=== PATIENT | female | born 1980 | race Caucasian/White ===

== ENCOUNTER → 2017-09-22 09:43 | Outpatient (CLI) | payer MEDICAID, SELFPAY ==
[2017-09-22 10:57] LABS: Basophils % 0.5 % (0.1-2.0); Eosinophils # 0.4 K/mm3 (0.0-0.4); Eosinophils % 4.6 % (0.1-12.0); Hematocrit 41.5 % (37.0-47.0); Hemoglobin 13.7 g/dL (12.2-16.2); Lymphocytes # 3.4 K/mm3 (0.7-4.5); Lymphocytes % 37.5 K/mm3 (10-50); Mean Corpuscular Hemoglobin 29.5 pg (27.0-31.2); Mean Corpuscular Volume 89.4 fl (81-99); Mean Platelet Volume 6.9 fl (7.4-10.4); Monocytes # 0.5 K/mm3 (0.1-1.0); Neutrophils # 4.6 K/mm3 (1.8-7.8); Neutrophils % 51.5 % (37.0-80.0); Platelet Count 313 K/mm3 (142-424); Red Blood Count 4.64 M/mm3 (4.20-5.40)
[2017-09-22 11:38] LABS: Alanine Aminotransferase 20 U/L (12-78); Albumin Level 3.9 gm/dL (3.4-5.0); Albumin/Globulin Ratio 1.1 (1.1-1.8); Alkaline Phosphatase 57 U/L (46-116); Anion Gap 11.2 mEq/L (5-15); Aspartate Amino Transferase 12 U/L (15-37); Bilirubin,Total 0.5 mg/dL (0.2-1.0); Blood Urea Nitrogen 11 mg/dL (7-18); Calcium 9.2 mg/dL (8.5-10.1); Carbon Dioxide 26 mmol/L (21.0-32.0); Chloride 107 mmol/L (98-107); Creatinine,Serum 0.75 mg/dL (0.55-1.02); Estimated Glomerular Filt Rate 86 ml/min (>60); GFR (African American) 105 ML/MIN (>60); Globulin 3.7 gm/dl (1.3-3.2); Glucose 99 mg/dL (74-106); Potassium 4.2 mmoL/L (3.5-5.1); Sodium 140 mmol/L (136-145); Total Protein,Serum 7.6 gm/dL (6.4-8.2)
== END ==
PROVIDERS: Visit Provider Nurse Practitioner
DX: B19.20 Unspecified viral hepatitis C without hepatic coma (principal); Z79.899 Other long term (current) drug therapy
CPT/HCPCS: 36415; 80053; 85025; 87522

== ENCOUNTER → 2017-10-07 08:15 | Outpatient (CLI) | payer MEDICAID, SELFPAY ==
[2017-10-07 08:49] LABS: Urine Pregnancy, HCG Qual. Negative (Negative)
[2017-10-07 08:50] LABS: INR 0.95 (0.9-1.1); Prothrombin Time 9.8 seconds (9.4-11.8)
[2017-10-07 09:23] LABS: Basophils # 0.1 K/mm3 (0-0.2); Basophils % 0.7 % (0.1-2.0); Eosinophils # 0.5 K/mm3 (0.0-0.4); Eosinophils % 6.4 % (0.1-12.0); Hematocrit 39.2 % (37.0-47.0); Hemoglobin 13.1 g/dL (12.2-16.2); Lymphocytes # 2.8 K/mm3 (0.7-4.5); Mean Corpuscular HGB Conc 33.5 g/dL (31.8-35.4); Mean Corpuscular Hemoglobin 29.9 pg (27.0-31.2); Mean Corpuscular Volume 89.4 fl (81-99); Mean Platelet Volume 6.8 fl (7.4-10.4); Monocytes # 0.4 K/mm3 (0.1-1.0); Neutrophils # 4.3 K/mm3 (1.8-7.8); Platelet Count 324 K/mm3 (142-424); Red Blood Count 4.38 M/mm3 (4.20-5.40); Red Cell Distribution Width 12.9 % (11.5-17.5); White Blood Count 8.1 K/mm3 (4.8-10.8)
[2017-10-07 11:35] LABS: Alanine Aminotransferase 18 U/L (12-78); Albumin Level 3.8 gm/dL (3.4-5.0); Alkaline Phosphatase 65 U/L (46-116); Anion Gap 11.6 mEq/L (5-15); Aspartate Amino Transferase 12 U/L (15-37); Bilirubin,Total 0.4 mg/dL (0.2-1.0); Blood Urea Nitrogen 11 mg/dL (7-18); Calcium 9.3 mg/dL (8.5-10.1); Carbon Dioxide 28 mmol/L (21.0-32.0); Chloride 104 mmol/L (98-107); Estimated Glomerular Filt Rate 80 ml/min (>60); GFR (African American) 97 ML/MIN (>60); Globulin 3.7 gm/dl (1.3-3.2); Glucose 122 mg/dL (74-106); Potassium 4.6 mmoL/L (3.5-5.1); Sodium 139 mmol/L (136-145); Total Protein,Serum 7.5 gm/dL (6.4-8.2)
== END ==
PROVIDERS: Visit Provider Nurse Practitioner
DX: B19.20 Unspecified viral hepatitis C without hepatic coma (principal); Z79.899 Other long term (current) drug therapy
CPT/HCPCS: 36415; 80053; 81025; 85025; 85610; 87522

== ENCOUNTER → 2017-11-03 07:09 | Outpatient (CLI) | payer MEDICAID, SELFPAY ==
[2017-11-03 07:26] LABS: Basophils % 0.4 % (0.1-2.0); Eosinophils # 0.4 K/mm3 (0.0-0.4); Eosinophils % 4.5 % (0.1-12.0); Hematocrit 41.5 % (37.0-47.0); Hemoglobin 13.7 g/dL (12.2-16.2); Lymphocytes # 3.1 K/mm3 (0.7-4.5); Mean Corpuscular Hemoglobin 29.7 pg (27.0-31.2); Mean Corpuscular Volume 89.8 fl (81-99); Monocytes # 0.5 K/mm3 (0.1-1.0); Monocytes % 5.8 % (1.7-9.3); Neutrophils # 4.7 K/mm3 (1.8-7.8); Neutrophils % 54.4 % (37.0-80.0); Platelet Count 323 K/mm3 (142-424); Red Blood Count 4.63 M/mm3 (4.20-5.40); White Blood Count 8.7 K/mm3 (4.8-10.8)
[2017-11-03 07:30] LABS: INR 0.95 (0.9-1.1); Prothrombin Time 9.8 seconds (9.4-11.8)
[2017-11-03 08:52] LABS: Alanine Aminotransferase 17 U/L (12-78); Albumin Level 3.8 gm/dL (3.4-5.0); Alkaline Phosphatase 72 U/L (46-116); Anion Gap 11.9 mEq/L (5-15); Aspartate Amino Transferase 11 U/L (15-37); Bilirubin,Total 0.4 mg/dL (0.2-1.0); Blood Urea Nitrogen 9 mg/dL (7-18); Calcium 9.6 mg/dL (8.5-10.1); Carbon Dioxide 28 mmol/L (21.0-32.0); Chloride 107 mmol/L (98-107); Estimated Glomerular Filt Rate 93 ml/min (>60); GFR (African American) 113 ML/MIN (>60); Globulin 3.7 gm/dl (1.3-3.2); Glucose 117 mg/dL (74-106); Potassium 4.9 mmoL/L (3.5-5.1); Sodium 142 mmol/L (136-145); Total Protein,Serum 7.5 gm/dL (6.4-8.2)
== END ==
PROVIDERS: PCP Family Medicine; Visit Provider Nurse Practitioner
DX: B19.20 Unspecified viral hepatitis C without hepatic coma (principal); Z79.899 Other long term (current) drug therapy
CPT/HCPCS: 36415; 80053; 85025; 85610; 87522

== ENCOUNTER → 2017-11-30 09:30 | Outpatient (CLI) | payer MEDICAID, SELFPAY ==
[2017-11-30 10:10] LABS: Urine Pregnancy, HCG Qual. Negative (Negative)
[2017-11-30 10:36] LABS: Basophils % 0.4 % (0.1-2.0); Eosinophils # 0.4 K/mm3 (0.0-0.4); Eosinophils % 4.9 % (0.1-12.0); Hematocrit 41.1 % (37.0-47.0); Hemoglobin 13.6 g/dL (12.2-16.2); Lymphocytes # 2.8 K/mm3 (0.7-4.5); Lymphocytes % 33.1 K/mm3 (10-50); Mean Corpuscular HGB Conc 33.1 g/dL (31.8-35.4); Mean Corpuscular Hemoglobin 29.5 pg (27.0-31.2); Mean Corpuscular Volume 89.2 fl (81-99); Monocytes # 0.5 K/mm3 (0.1-1.0); Monocytes % 5.6 % (1.7-9.3); Neutrophils # 4.8 K/mm3 (1.8-7.8); Platelet Count 313 K/mm3 (142-424); Red Blood Count 4.61 M/mm3 (4.20-5.40); Red Cell Distribution Width 12.8 % (11.5-17.5); White Blood Count 8.5 K/mm3 (4.8-10.8)
[2017-11-30 12:03] LABS: Alanine Aminotransferase 19 U/L (12-78); Albumin/Globulin Ratio 1.1 (1.1-1.8); Alkaline Phosphatase 56 U/L (46-116); Anion Gap 14.1 mEq/L (5-15); Aspartate Amino Transferase 16 U/L (15-37); Bilirubin,Total 0.4 mg/dL (0.2-1.0); Blood Urea Nitrogen 9 mg/dL (7-18); Calcium 9.3 mg/dL (8.5-10.1); Carbon Dioxide 25 mmol/L (21.0-32.0); Chloride 103 mmol/L (98-107); Creatinine,Serum 0.67 mg/dL (0.55-1.02); Estimated Glomerular Filt Rate 98 ml/min (>60); GFR (African American) 119 ML/MIN (>60); Globulin 3.7 gm/dl (1.3-3.2); Glucose 94 mg/dL (74-106); Potassium 4.1 mmoL/L (3.5-5.1); Sodium 138 mmol/L (136-145); Total Protein,Serum 7.7 gm/dL (6.4-8.2)
== END ==
PROVIDERS: PCP Family Medicine; Visit Provider Nurse Practitioner
DX: B19.20 Unspecified viral hepatitis C without hepatic coma (principal); Z79.899 Other long term (current) drug therapy
CPT/HCPCS: 36415; 80053; 81025; 85025; 87522

== ENCOUNTER → 2017-12-23 09:16 | Outpatient (CLI) | payer MEDICAID, SELFPAY ==
--- NOTE | 2017-12-23 09:19 | US_ITS ---
US transvaginal HISTORY: ITS.REASON: pelvic pain ORDERING PHYSICIAN: Gerardo Rosales MD PATIENT AGE: 37 years Comparison: None FINDINGS: Nabothian cysts are present measuring up to 7 mm. The uterus is 7.6 x 3.4 x 5.2 cm. Endometrium has an unremarkable appearance measuring 6 mm in thickness. The uterus is anteverted. The right ovary is 2.4 x 1.1 cm and contains a 7 mm follicle The left ovary is 2.8 x 1.9 cm and contains several small follicular cysts the largest of which is 1.3 cm. Bilateral ovarian blood flow. No cul-de-sac fluid. IMPRESSION: Essentially negative pelvic ultrasound. There are small left ovarian follicular cysts
== END ==
PROVIDERS: PCP Family Medicine; Visit Provider Obstetrics & Gynecology
DX: R10.2 Pelvic and perineal pain (principal)
CPT/HCPCS: 76830

== ENCOUNTER → 2018-01-26 09:54 | Outpatient (CLI) | payer MEDICAID, SELFPAY ==
[2018-01-26 10:29] LABS: INR 0.98 (0.9-1.1); Prothrombin Time 10.1 seconds (9.4-11.8)
[2018-01-26 10:33] LABS: Basophils % 0.5 % (0.1-2.0); Eosinophils # 0.5 K/mm3 (0.0-0.4); Eosinophils % 6.1 % (0.1-12.0); Hematocrit 39.7 % (37.0-47.0); Hemoglobin 12.9 g/dL (12.2-16.2); Lymphocytes # 2.8 K/mm3 (0.7-4.5); Lymphocytes % 37.7 % (10-50); Mean Corpuscular HGB Conc 32.6 g/dL (31.8-35.4); Mean Corpuscular Hemoglobin 29.4 pg (27.0-31.2); Mean Corpuscular Volume 90.3 fl (81-99); Mean Platelet Volume 7.1 fl (7.4-10.4); Monocytes # 0.4 K/mm3 (0.1-1.0); Monocytes % 4.8 % (1.7-9.3); Neutrophils # 3.8 K/mm3 (1.8-7.8); Neutrophils % 50.8 % (37.0-80.0); Platelet Count 318 K/mm3 (142-424); Red Cell Distribution Width 13.1 % (11.5-17.5); White Blood Count 7.4 K/mm3 (4.8-10.8)
[2018-01-26 11:00] LABS: Alanine Aminotransferase 24 U/L (12-78); Albumin Level 3.7 gm/dL (3.4-5.0); Albumin/Globulin Ratio 1.1 (1.1-1.8); Alkaline Phosphatase 53 U/L (46-116); Anion Gap 11.8 mEq/L (5-15); Aspartate Amino Transferase 18 U/L (15-37); Bilirubin,Total 0.3 mg/dL (0.2-1.0); Blood Urea Nitrogen 7 mg/dL (7-18); Calcium 9.5 mg/dL (8.5-10.1); Carbon Dioxide 28 mmol/L (21.0-32.0); Chloride 104 mmol/L (98-107); Creatinine,Serum 0.75 mg/dL (0.55-1.02); Estimated Glomerular Filt Rate 86 ml/min (>60); GFR (African American) 104 ML/MIN (>60); Globulin 3.5 gm/dl (1.3-3.2); Glucose 94 mg/dL (74-106); Potassium 3.8 mmoL/L (3.5-5.1); Sodium 140 mmol/L (136-145); Total Protein,Serum 7.2 gm/dL (6.4-8.2)
== END ==
PROVIDERS: PCP Family Medicine; Visit Provider Nurse Practitioner
DX: B19.20 Unspecified viral hepatitis C without hepatic coma (principal); Z79.899 Other long term (current) drug therapy
CPT/HCPCS: 36415; 80053; 85025; 85610; 87522

== ENCOUNTER → 2019-03-04 08:37 | Outpatient (CLI) | payer OTHER, SELFPAY ==
[2019-03-04 10:54] LABS: Blood Urea Nitrogen 12 mg/dL (7-18); Chloride 102 mmol/L (98-107); Sodium 137 mmol/L (136-145)
[2019-03-04 11:14] LABS: Alanine Aminotransferase 19 U/L (12-78); Albumin Level 3.9 gm/dL (3.4-5.0); Albumin/Globulin Ratio 1.3 (1.1-1.8); Alkaline Phosphatase 46 U/L (46-116); Anion Gap 11.6 mEq/L (5-15); Aspartate Amino Transferase 11 U/L (15-37); Bilirubin,Total 0.6 mg/dL (0.2-1.0); Calcium 9.3 mg/dL (8.5-10.1); Carbon Dioxide 28 mmol/L (21.0-32.0); Chol/HDL Ratio 4.4 (1-3.5); Cholesterol 208 mg/dL (140-200); Creatinine,Serum 0.87 mg/dL (0.55-1.02); Estimated Glomerular Filt Rate 72 ml/min (>60); GFR (African American) 87 ML/MIN (>60); Globulin 3.1 gm/dl (1.3-3.2); Glucose 101 mg/dL (74-106); HDL Cholesterol 47 mg/dL (29-89); LDL Cholesterol 138 mg/dL (0-130); Potassium 4.6 mmoL/L (3.5-5.1); Thyroid Stimulating Hormone 1.08 uIU/ml (0.358-3.740); Triglycerides 116 mg/dL (30-200); VLDL Cholesterol 23 mg/dL (0-40)
== END ==
PROVIDERS: Visit Provider Physician Assistant
DX: Z13.29 Encounter for screening for other suspected endocrine disorder (principal); Z13.220 Encounter for screening for lipoid disorders
CPT/HCPCS: 36415; 80053; 80061; 84443

== ENCOUNTER → 2019-04-06 09:08 | Outpatient (CLI) | payer OTHER, SELFPAY ==
[2019-04-06 09:19] LABS: Adenovirus F 40/41, stool Not Detected (NotDetected); Astrovirus Not Detected (NotDetected); Campylobacter Not Detected (NotDetected); Clostridium Difficile A/B, PCR Not Detected (NotDetected); Cryptosporidium Not Detected (NotDetected); Cyclospora Cayetanesis Not Detected (NotDetected); Entamoeba histolytica Not Detected (NotDetected); Enteroaggregative E coli Not Detected (NotDetected); Enteropathogenic E coli Not Detected (NotDetected); Enterotoxigenic E coli Not Detected (NotDetected); Giardia lamblia Not Detected (NotDetected); Norovirus Not Detected (NotDetected); Plesimonas Shigalloides, PCR Not Detected (NotDetected); Rotavirus A Not Detected (NotDetected); Salmonella, PCR Not Detected (NotDetected); Sapovirus Not Detected (NotDetected); Shiga-like toxin E coli Not Detected (NotDetected); Shigella Enterovasive E coli Not Detected (NotDetected); Vibrio Cholerae Not Detected (NotDetected); Vibrio, PCR Not Detected (NotDetected); Yersinia Entercolitica, PCR Not Detected (NotDetected)
== END ==
PROVIDERS: Visit Provider Physician Assistant
DX: R19.7 Diarrhea, unspecified (principal)
CPT/HCPCS: 87507

== ENCOUNTER → 2020-03-23 09:17 | Outpatient (CLI) | payer OTHER, SELFPAY ==
[2020-03-23 10:27] LABS: Alanine Aminotransferase 15 U/L (12-78); Albumin Level 4.8 g/dl (3.5-5.0); Albumin/Globulin Ratio 1.4 (1.1-1.8); Alkaline Phosphatase 48 U/L (38-126); Anion Gap 12.3 mEq/L (5-15); Aspartate Amino Transferase 23 U/L (14-36); Bilirubin,Total 0.6 mg/dl (0.2-1.3); Blood Urea Nitrogen 10 mg/dl (7-17); Calcium 10.4 mg/dl (8.4-10.2); Carbon Dioxide 25 mmol/L (22.0-30.0); Chloride 105 mmol/L (98-107); Chol/HDL Ratio 4.6 (1-3.5); Cholesterol 236 mg/dl (140-200); Estimated Glomerular Filt Rate 79 ml/min (>60); GFR (African American) 96 ML/MIN (>60); Globulin 3.4 g/dL (1.3-3.2); Glucose 123 mg/dl (74-100); HDL Cholesterol 51 mg/dl (40-60); Potassium 4.3 mmoL/L (3.5-5.1); Sodium 138 mmol/L (136-145); Total Protein,Serum 8.2 g/dl (6.3-8.2); Triglycerides 140 mg/dl (30-150); VLDL Cholesterol 28 mg/dL (0-40)
[2020-03-23 10:38] LABS: Direct LDL Cholesterol 144.54 mg/dL (100-129)
== END ==
PROVIDERS: Visit Provider Physician Assistant
DX: Z13.220 Encounter for screening for lipoid disorders (principal); Z79.899 Other long term (current) drug therapy; G47.00 Insomnia, unspecified
CPT/HCPCS: 36415; 80053; 80061

== ENCOUNTER 2020-05-08 10:36 | Emergency (ER) | payer OTHER, SELFPAY ==
[2020-05-08 10:50] VITALS: BP 122/71; PULSE 75; RESP 16; TEMP 36.6; O2SAT 100; BMI 25.9
--- NOTE | 2020-05-08 10:59 | HMH.EDUTC ---
[facility] [place]ression: Encounter for laboratory testing for COVID-19 virus Disposition: Home, Self-Care Condition on Discharge: Good Instructions: DI for COVID-19 (Suspected or Confirmed ), Preventing the Spread of Coronavirus Discharge Instructions Additional Instructions: You were tested for today for COVID19 your test result should be back in the next 24-48 hours, you may call to the [facility] to see if your test results are back in the next 48 hours [phone] [facility] hours are 9am-9pm You was given a handout with instructions for Self Quarantine and Self isolation for while you wait on test results and what to do if they are positive If you are positive the Health Dept will be contacting you also Referrals: Wilbur Romero MD [Primary Care Provider] - As needed Forms: Work/School Release Time of Disposition: 11:02 Medical Decision Making - Bong Inquiry Pt receiving controlled substance: No Bong was queried for this patient: No Vital Signs: 05/08/20 10:50 Temperature 97.8 F Temperature Source Oral Pulse Rate [Right] 75 Respiratory Rate 16 Blood Pressure [Right Arm] 122/71 Blood Pressure Mean [Right Arm] 88 Blood Pressure Source [Right Arm] Automatic Cuff Blood Pressure Position [Right Arm] Sitting 02 Sat by Pulse Oximetry 100 Oxygen Delivery Method Room Air Orders (Tests/Meds): ORDERS Category Date Time Status Covid-19 Nasal PCR ([facility]) Routine Lab 05/08/20 10:50 [place] [facility] [place] - General Stated complaint: covid exposure,diarrhea Time Seen by Provider: 05/08/20 10:59 Mode of Arrival: Ambulatory Source of Information: Patient Limitations: No Limitations Description of Symptoms (Recalled from Triage Doc. by RN): pt was exposed to covid last wednesday. pt is asymptomatic. HEENT Symptoms (Recalled from RN notes): No Resp Symptoms (Recalled from RN notes): No Skin Symptoms (Recalled from RN notes): No MS Symptoms (Recalled from RN notes): No Functional Status (Recalled from RN notes): na - History of Present Illness Provider Complaint: Patient states that she was exposed to COVID on Wednesday States that she had a little bit of diarrhea on Wednesday but only lasted for a few hours then stopped States that she has been vaccinated but her boss told her that she had to come and get tested - Related Data Home Medications Medication Instructions Recorded Confirmed duloxetine 30 mg capsule,delayed PO 30 Days #30 04/02/17 12/25/19 release quetiapine 100 mg tablet 100 mg PO QHS 30 Days #30 tab 04/02/17 12/25/19 valacyclovir 1 gram tablet 1,000 mg PO tab 12/25/19 12/25/19 Allergies Allergy/AdvReac Type Severity Reaction Status Date / Time No Known Allergies Allergy Verified 05/08/20 10:54 - Worker's Comp Is this a Worker's Comp case?: No [facility] History - Hepatitis A Screen Drug use history?: No High risk sexual behaviors?: No History of sexually transmitted infection?: No Currently employed?: No Childcare worker?: No Do you have indoor plumbing?: Yes Do you have electricity?: Yes Attestation statement:: This patient has been screened for Hepatitis A risk factors. I have reviewed the patient's past medical history: Yes Other Surgeries: Yes: Other Amputation: No Fractures: No Comment: 1998- WISDOM TEETH. 2001- CRYOSURGERY. 2010- SINUS SURGERY - Social History Smoking Status: Current every day smoker # Packs/Day (cigarettes): 1 #Yrs smoked (if former smoker): 20 Alcohol Intake: never Alcohol Intake Frequency:: other Substance Use Type: denies use Occupational Status: employed Housing: house Family Hx:: Cancer, Heart Attack Comment: 2012- ,FEMALE,6 LB. 8 OZ. ROS Obtained: Yes All systems reviewed & no additional complaints, Yes Systems reviewed as appropriate & no additional complaints - Constitutional Constitutional: Reports system reviewed and no additional complaints, except as docu, Denies body ache, Denies chills, Denies fatigue, Denies fever(s)
[2020-05-08 11:04] VITALS: BP 119/84; PULSE 79; RESP 14; TEMP 36.6
== END 2020-05-08 11:11 | disposition home or self-care (01) ==
PROVIDERS: Emergency Provider Nurse Practitioner; PCP Family Medicine
DX: Z20.822 Contact with and (suspected) exposure to COVID-19 (principal); F17.210 Nicotine dependence, cigarettes, uncomplicated
CPT/HCPCS: 99202; G0463; U0003

== ENCOUNTER 2020-05-27 18:51 | Emergency (ER) | payer OTHER, SELFPAY ==
[2020-05-27 18:55] VITALS: BP 114/71; PULSE 88; RESP 20; TEMP 36.4; O2SAT 99; BMI 25.9
--- NOTE | 2020-05-27 19:11 | HMH.EDUTC ---
[facility] [place] Clinical Impression: Encounter for laboratory testing for COVID-19 virus Disposition: Home, Self-Care Condition on Discharge: Good Instructions: DI for COVID-19 (Suspected or Confirmed ), Preventing the Spread of Coronavirus Discharge Instructions Additional Instructions: *Monitor Temp, Over the counter Motrin or Tylenol as directed/as needed Tylenol every 4 hours and Motrin every 6 hours (as long as your family doctor has told you that you can take it) for fever or pain. and straight to ER if unable to lower temp less than 101.0 after medication given Follow up IMMEDIATELY for new or worsening symptoms or no Noticeable improvement over the next 48-72 hours. 911 for difficulty breathing or swallowing You were tested for today for COVID19 your test result should be back in the next 24-48 hours, you may call to the [facility] to see if your test results are back in the next 48 hours [phone] [facility] hours are 9am-9pm You was given a handout with instructions for Self Quarantine and Self isolation for while you wait on test results and what to do if they are positive If you are positive the Health Dept will be contacting you also Referrals: Wilbur Romero MD [Primary Care Provider] - As needed Forms: Work/School Release Time of Disposition: 19:16 Medical Decision Making - Bong Inquiry Pt receiving controlled substance: No Bong was queried for this patient: No Vital Signs: 05/27/20 18:55 Temperature 97.5 F L Temperature Source Temporal Artery Scan Pulse Rate [Right Brachial] 88 Respiratory Rate 20 Blood Pressure [Right Arm] 114/71 Blood Pressure Mean [Right Arm] 85 Blood Pressure Source [Right Arm] Automatic Cuff Blood Pressure Position [Right Arm] Sitting 02 Sat by Pulse Oximetry 99 Oxygen Delivery Method Room Air Orders (Tests/Meds): ORDERS Category Date Time Status Covid-19 Nasal PCR ([facility]) Routine Lab 05/27/20 19:01 Ordered [facility] [place] H[place] - General Stated complaint: covid test Time Seen by Provider: 05/27/20 19:11 Mode of Arrival: Ambulatory Source of Information: Patient Limitations: No Limitations Description of Symptoms (Recalled from Triage Doc. by RN): COVID TEST D/T EXPOSURE. DENIES SYMPTOMS HEENT Symptoms (Recalled from RN notes): No Resp Symptoms (Recalled from RN notes): No Skin Symptoms (Recalled from RN notes): No MS Symptoms (Recalled from RN notes): No Functional Status (Recalled from RN notes): WNL - History of Present Illness Provider Complaint: Patient state that she was around a coworker over the weekend States that she is not having any symptoms States that work wanted her to get tested due to close exposure but denies having any symptoms - Related Data Home Medications Medication Instructions Recorded Confirmed duloxetine 30 mg capsule,delayed PO 30 Days #30 04/02/17 12/25/19 release quetiapine 100 mg tablet 100 mg PO QHS 30 Days #30 tab 04/02/17 12/25/19 valacyclovir 1 gram tablet 1,000 mg PO tab 12/25/19 12/25/19 Allergies Allergy/AdvReac Type Severity Reaction Status Date / Time No Known Allergies Allergy Verified 05/08/20 10:54 - Worker's Comp Is this a Worker's Comp case?: No [facility] History - Hepatitis A Screen Drug use history?: No High risk sexual behaviors?: No History of sexually transmitted infection?: No Currently employed?: No Childcare worker?: No Do you have indoor plumbing?: Yes Do you have electricity?: Yes Attestation statement:: This patient has been screened for Hepatitis A risk factors. I have reviewed the patient's past medical history: Yes Other Surgeries: Yes: Other Amputation: No Fractures: No Comment: 1998- WISDOM TEETH. 2001- CRYOSURGERY. 2010- SINUS SURGERY - Social History Smoking Status: Current every day smoker # Packs/Day (cigarettes): 1 #Yrs smoked (if former smoker): 20 Alcohol Intake: never Alcohol Intake Frequency:: other Substance Use Type: denies use Occupational Status: employe
[2020-05-27 19:25] VITALS: BP 114/71; PULSE 88; RESP 20; TEMP 36.4; O2SAT 99
== END 2020-05-27 19:29 | disposition home or self-care (01) ==
PROVIDERS: Emergency Provider Nurse Practitioner; PCP Family Medicine
DX: Z20.822 Contact with and (suspected) exposure to COVID-19 (principal); F17.210 Nicotine dependence, cigarettes, uncomplicated
CPT/HCPCS: 99202; G0463; U0003

== ENCOUNTER → 2020-07-27 07:51 | Outpatient (CLI) | payer OTHER, SELFPAY ==
[2020-07-27 09:09] LABS: Cholesterol 208 mg/dl (140-200); Triglycerides 113 mg/dl (30-150); VLDL Cholesterol 23 mg/dL (0-40)
[2020-07-27 09:10] LABS: Chol/HDL Ratio 4.4 (1-3.5); HDL Cholesterol 47 mg/dl (40-60)
[2020-07-27 09:20] LABS: Direct LDL Cholesterol 128.02 mg/dL (100-129)
[2020-07-29 13:09] LABS: H. pylori Breath Test Negative (Negative)
== END ==
PROVIDERS: Visit Provider Family Medicine
DX: R14.2 Eructation (principal); E78.2 Mixed hyperlipidemia
CPT/HCPCS: 80061; 83013

== ENCOUNTER → 2021-02-11 11:11 | Outpatient (CLI) | payer OTHER, SELFPAY ==
[2021-02-11 12:16] LABS: Adenovirus,PCR Not Detected (NotDetected); Bordetella Pertussis Not Detected (NotDetected); Chlamydophila Pneumoniae, PCR Not Detected (NotDetected); Coronavirus 19, PCR Not Detected (NotDetected); Coronavirus 229E Not Detected (NotDetected); Coronavirus NL63 Not Detected (NotDetected); Coronavirus OC43 Not Detected (NotDetected); Coronovirus HKU1,PCR Not Detected (NotDetected); Human Metapneumovirus Not Detected (NotDetected); Influenza A, PCR Not Detected (NotDetected); Influenza AH1, 2009 Not Detected (NotDetected); Influenza AH1, PCR Not Detected (NotDetected); Influenza AH3,PCR Not Detected (NotDetected); Influenza B, PCR Not Detected (NotDetected); Mycoplasma Pneumoniae, PCR Not Detected (NotDetected); Parainfluenza 1, PCR Not Detected (NotDetected); Parainfluenza 2, PCR Not Detected (NotDetected); Parainfluenza 3, PCR Not Detected (NotDetected); Parainfluenza 4, PCR Not Detected (NotDetected); Respiratory Syncytial Virus Not Detected (NotDetected); Rhinovirus/Enterovirus Not Detected (NotDetected)
[2021-02-11 12:25] LABS: Basophils # 0.1 K/mm3 (0-0.2); Basophils % 0.9 % (0.1-2.0); Eosinophils # 0.2 K/mm3 (0.0-0.4); Eosinophils % 2.1 % (0.1-12.0); Hematocrit 40.1 % (37.0-47.0); Hemoglobin 13.1 g/dL (12.2-16.2); Lymphocytes # 0.9 K/mm3 (0.7-4.5); Mean Corpuscular HGB Conc 32.7 g/dL (31.8-35.4); Mean Corpuscular Hemoglobin 30.6 pg (27.0-31.2); Mean Corpuscular Volume 93.4 fl (81-99); Mean Platelet Volume 7.8 fl (7.4-10.4); Monocytes # 0.6 K/mm3 (0.1-1.0); Monocytes % 6.2 % (1.7-9.3); Neutrophils # 7.5 K/mm3 (1.8-7.8); Neutrophils % 80.9 % (37.0-80.0); Platelet Count 268 K/mm3 (142-424); Red Cell Distribution Width 13.1 % (11.5-17.5); White Blood Count 9.2 K/mm3 (4.8-10.8)
== END ==
PROVIDERS: PCP Family Medicine; Visit Provider Family Medicine
DX: Z20.822 Contact with and (suspected) exposure to COVID-19 (principal)
CPT/HCPCS: 36415; 85025; 87581; 87632; 87798; C9803; U0003; U0005

== ENCOUNTER 2021-02-15 10:32 | Emergency (ER) | payer OTHER, SELFPAY ==
--- NOTE | 2021-02-15 11:14 | HMH.EDUTC ---
[facility] [place]: Exposure to COVID-19 virus Disposition: Home, Self-Care Condition on Discharge: Good Instructions: Preventing the Spread of Coronavirus Discharge Instructions, DI for COVID-19 (Suspected or Confirmed ) Additional Instructions: Drink plenty of fluids. Take tylenol or ibuprofen for pain or fever. Follow up with your regular doctor. GO TO THE ER FOR ANY WORSENING SYMPTOMS Quarantine until you know the results of your covid-19 test. If it is positive, the health department should call you and give you further instructions about your length of Quarantine and other things. Notify your school or workplace of your results and follow their instructions regarding return to work/school. Referrals: Wilbur Romero MD [Primary Care Provider] - Time of Disposition: 11:45 Medical Decision Making - Medical Records Medical records reviewed: No: I reviewed the patient's medical records. - Bong Inquiry Pt receiving controlled substance: No Vital Signs: 02/15/21 11:16 Temperature 98.8 F Temperature Source Oral Pulse Rate [Right] 75 Respiratory Rate 18 Blood Pressure [Right Arm] 110/67 Blood Pressure Mean [Right Arm] 81 02 Sat by Pulse Oximetry 98 Orders (Tests/Meds): ORDERS Category Date Time Status Covid-19 Nasal PCR ([facility]) Routine Lab 02/15/21 11:35 [place] [facility] [place] - General Stated complaint: covid symptoms, exposure Time Seen by Provider: 02/15/21 11:14 - History of Present Illness Provider Complaint: She has been feeling bad for the past 5 days or so. She saw her pcp and was started on cefdinir for a sinus infection. Then, yesterday, she found out someone in her office has covid-19. Her work wants her to be tested for covid-19. - Related Data Home Medications Medication Instructions Recorded Confirmed duloxetine 30 mg capsule,delayed PO 30 Days #30 04/02/17 12/25/19 release quetiapine 100 mg tablet 100 mg PO QHS 30 Days #30 tab 04/02/17 12/25/19 valacyclovir 1 gram tablet 1,000 mg PO tab 12/25/19 12/25/19 Allergies Allergy/AdvReac Type Severity Reaction Status Date / Time No Known Allergies Allergy Verified 05/08/20 10:54 [facility] History - Hepatitis A Screen Attestation statement:: This patient has been screened for Hepatitis A risk factors. I have reviewed the patient's past medical history: Yes Other Surgeries: Yes: Other Amputation: No Fractures: No Comment: 1998- WISDOM TEETH. 2001- CRYOSURGERY. 2010- SINUS SURGERY - Social History Smoking Status: Current every day smoker # Packs/Day (cigarettes): 1 #Yrs smoked (if former smoker): 20 Alcohol Intake: never Alcohol Intake Frequency:: other Substance Use Type: denies use Occupational Status: employed Housing: house Family Hx:: Cancer, Heart Attack Comment: 2013- ,FEMALE,6 LB. 8 OZ. ROS Obtained: Yes All systems reviewed & no additional complaints - Constitutional Constitutional: Denies chills, Denies fever(s) - Eyes Eyes: Denies eye discharge - ENT Ears, Nose, Mouth, and Throat: Denies dizziness, Denies otalgia, Denies sore throat - Cardiovascular Cardiovascular: Denies chest pain - Respiratory Respiratory: Denies chest congestion, Reports cough, Denies dyspnea, Denies stridor, Denies wheezing Physical Exam - General General appearance: alert, in no apparent distress - Head Head exam: atraumatic, normocephalic, normal inspection - Eye Eye exam: Present: normal appearance, PERRL, EOMI - ENT ENT exam: Present: normal exam, normal oropharynx, mucous membranes moist, TM's normal bilaterally, normal external ear exam - Neck Neck exam: Present: normal inspection, full ROM, trachea midline. Absent: meningismus, lymphadenopathy - Chest Chest inspection: Present: normal inspection, symmetric chest wall rise. Absent: tenderness - Respiratory Respiratory exam: Present: normal lung sounds bilaterally. Absent: respiratory distres
[2021-02-15 11:16] VITALS: BP 110/67; PULSE 75; RESP 18; TEMP 37.1; O2SAT 98; BMI 26.6
[2021-02-15 11:53] VITALS: BP 110/67; PULSE 75; RESP 18; TEMP 37.1
== END 2021-02-15 11:54 | disposition home or self-care (01) ==
PROVIDERS: Emergency Provider Nurse Practitioner Family; PCP Family Medicine
DX: Z20.822 Contact with and (suspected) exposure to COVID-19 (principal); R05.1 Acute cough; F17.210 Nicotine dependence, cigarettes, uncomplicated
CPT/HCPCS: 99202; C9803; G0463; U0003; U0005

== ENCOUNTER → 2022-04-03 16:19 | Outpatient (CLI) | payer OTHER, SELFPAY ==
--- NOTE | 2022-04-03 | MM_ITS ---
PROCEDURE INFORMATION: Exam: MG Bilateral Screening 3D Mammography Exam date and time: 04/03/2022 4:12 PM Age: 41 years old Clinical indication: Baseline. No family history of breast cancer. TECHNIQUE: Imaging protocol: Bilateral Screening tomosynthesis and 2D mammography including computer-aided detection (CAD) when performed. COMPARISON: No relevant prior studies available. FINDINGS: MAMMOGRAPHY: Breast composition: The breasts are heterogeneously dense, which may obscure small masses. Mass: None. Architectural distortion: None. Calcifications: No suspicious calcifications. Asymmetric density: None. Skin thickening: None. Axillary adenopathy: None. IMPRESSION: No mammographic evidence of malignancy. Annual screening is recommended unless otherwise clinically indicated. ASSESSMENT: BI-RADS Category 1: Negative
== END ==
PROVIDERS: PCP Family Medicine; Visit Provider Family Medicine
DX: Z12.31 Encounter for screening mammogram for malignant neoplasm of breast (principal)
CPT/HCPCS: 77063; 77067

== ENCOUNTER → 2022-06-22 17:44 | Outpatient (CLI) | payer OTHER, SELFPAY ==
--- NOTE | 2022-06-22 17:59 | XR_ITS ---
PROCEDURE INFORMATION: Exam: XR Cervical Spine Exam date and time: 06/22/2022 5:52 PM Age: 41 years old Clinical indication: Patient HX: skilled nursing neck pain, no injury. TECHNIQUE: Imaging protocol: Radiologic exam of the cervical spine. Views: 2 or 3 views. COMPARISON: No relevant prior studies available. FINDINGS: Bones/joints: Mild uncovertebral spurring present at the C4-C5 and C5-C6 disc levels. No other significant degenerative/arthritic changes. No fracture or subluxation. Soft tissues: Unremarkable. IMPRESSION: Minimal degenerative changes as described. No acute abnormality.
== END ==
PROVIDERS: PCP Physician Assistant; Visit Provider Physician Assistant
DX: M54.2 Cervicalgia (principal)
CPT/HCPCS: 72040

== ENCOUNTER → 2022-08-15 11:06 | Outpatient (CLI) | payer OTHER, SELFPAY ==
[2022-08-15 11:27] LABS: Basophils # 0.1 K/mm3 (0-0.2); Basophils % 0.6 % (0.1-2.0); Eosinophils # 0.5 K/mm3 (0.0-0.4); Eosinophils % 5.3 % (0.1-12.0); Hematocrit 40.4 % (37.0-47.0); Hemoglobin 13.1 g/dL (12.2-16.2); Lymphocytes # 3.6 K/mm3 (0.7-4.5); Lymphocytes % 36.4 % (10-50); Mean Corpuscular HGB Conc 32.4 g/dL (31.8-35.4); Mean Corpuscular Hemoglobin 28.9 pg (27.0-31.2); Mean Platelet Volume 7.4 fl (7.4-10.4); Monocytes # 0.4 K/mm3 (0.1-1.0); Monocytes % 4.4 % (1.7-9.3); Neutrophils # 5.3 K/mm3 (1.8-7.8); Neutrophils % 53.3 % (37.0-80.0); Platelet Count 303 K/mm3 (142-424); Red Blood Count 4.54 M/mm3 (4.20-5.40); Red Cell Distribution Width 13.1 % (11.5-17.5); White Blood Count 9.9 K/mm3 (4.8-10.8)
[2022-08-15 11:57] LABS: Alanine Aminotransferase 26 U/L (12-78); Albumin Level 4.7 g/dl (3.5-5.0); Albumin/Globulin Ratio 1.5 (1.1-1.8); Alkaline Phosphatase 49 U/L (38-126); Anion Gap 14.2 mEq/L (5-15); Aspartate Amino Transferase 28 U/L (14-36); Bilirubin,Total 0.6 mg/dl (0.2-1.3); Blood Urea Nitrogen 11 mg/dl (7-17); Calcium 9.5 mg/dl (8.4-10.2); Carbon Dioxide 23 mmol/L (22.0-30.0); Chloride 105 mmol/L (98-107); Chol/HDL Ratio 5.2 (1-3.5); Cholesterol 258 mg/dl (140-200); Estimated Glomerular Filt Rate 78 ml/min (>60); GFR (African American) 95 ML/MIN (>60); Globulin 3.2 g/dL (1.3-3.2); Glucose 91 mg/dl (74-100); HDL Cholesterol 50 mg/dl (40-60); Potassium 4.2 mmoL/L (3.5-5.1); Sodium 138 mmol/L (136-145); Total Protein,Serum 7.9 g/dl (6.3-8.2); Triglycerides 124 mg/dl (30-150); VLDL Cholesterol 25 mg/dL (0-40)
[2022-08-15 12:08] LABS: Direct LDL Cholesterol 155.88 mg/dL (100-129)
[2022-08-15 12:14] LABS: 25-OH Vitamin D, Total 78.5 ng/mL (30-100)
[2022-08-15 12:28] LABS: Thyroid Stimulating Hormone 1.55 uIU/mL (0.465-4.68)
[2022-08-15 12:47] LABS: Vitamin B12 927 pg/mL (239-931)
== END ==
PROVIDERS: PCP Family Medicine; Visit Provider Physician Assistant
DX: R42 Dizziness and giddiness (principal); E78.2 Mixed hyperlipidemia; E53.8 Deficiency of other specified B group vitamins; E55.9 Vitamin D deficiency, unspecified; H93.13 Tinnitus, bilateral
CPT/HCPCS: 36415; 80053; 80061; 82306; 82607; 84443; 85025

== ENCOUNTER → 2022-10-06 15:34 | Outpatient (POV) | payer OTHER, SELFPAY | PROVIDERS: Visit Provider Specialist/Technologist | DX: Z00.00 Encounter for general adult medical examination without abnormal findings (principal) ==

== ENCOUNTER 2023-06-15 09:49 | Outpatient (CLI) | payer OTHER, SELFPAY ==
--- NOTE | 2023-06-15 09:49 | MM_ITS ---
PROCEDURE INFORMATION: Exam: MG Bilateral Screening 3D Mammography Exam date and time: 06/15/2023 9:41 AM Age: 42 years old Clinical indication: Screening. No family history of breast cancer. TECHNIQUE: Imaging protocol: Bilateral Screening tomosynthesis and 2D mammography including computer-aided detection (CAD) when performed. COMPARISON: MG MM DIG SCREENING MAMM BI W/CAD 04/03/2022 4:12 PM FINDINGS: MAMMOGRAPHY: Breast composition: The breasts are heterogeneously dense, which may obscure small masses. Mass: None. Architectural distortion: None. Calcifications: No suspicious calcifications. Asymmetric density: None. Skin thickening: None. Axillary adenopathy: None. IMPRESSION: No mammographic evidence of malignancy. Annual screening is recommended unless otherwise clinically indicated. ASSESSMENT: BI-RADS Category 1: Negative
== END 2023-06-15 23:59 | disposition home or self-care (01) ==
PROVIDERS: PCP Family Medicine; Visit Provider Obstetrics & Gynecology
DX: Z12.31 Encounter for screening mammogram for malignant neoplasm of breast (principal)
CPT/HCPCS: 77063; 77067

== ENCOUNTER 2024-11-02 09:45 | Outpatient (CLI) | payer OTHER, SELFPAY ==
--- OUTSIDE RECORDS SUMMARY | 2023-06-15 07:00 | XMS_ITS ---
[facility] Address [address] [facility] [address] [id number] Care Team Providers Care Skin Pass Operator Name Role Phone Alex Vazquez Primary Care Provider Allergies No Known Allergies REASON FOR VISIT left shoulder pain Medications Medication SIG (Take, Route, Frequency, Duration) Notes Start Date End Date Status predniSONE 10 MG 1 tablet 3 times bhavna ly x 5 days then two times daily x 5 days then 1 daily x 5 days Orally 06/15/2023 Active QUEtiapine Fumarate 100 MG 1 tab(s) orally once a day (in the evening); Duration: 90 day(s) 01/06/2022 Active Probiotic Blend - as directed Orally Active Vitamin B-6 100 MG 1 tablet Orally Once a day; Duration: 30 day(s) Active Vitamin B-12 1000 MCG 1 tablet Orally On ce a day; Duration: 30 day(s) Active Cipro 250 MG 1 tablet Orally ever y 12 hrs; Duration: 7 days 10/21/2022 Not-Taking Metaxalone 800 MG 1 tab(s) orally 3 ti mes a day 06/17/2022 Not-Taking Vitamin D3 125 MCG (5000 UT) 1 tab(s) Orally once a day Active ZyrTEC Allergy 10 MG 1 tab(s) orally onc e a day Active Zinc 50 MG 1 tablet Orally Once a day; Duration: 30 day(s) Active Vitamin C 1000 MG 1 tablet Orally Once a day; Duration: 30 day(s) Active Calcium 600 MG 1 tablet with meals Orally Twice a day; Duration: 30 day(s) Active Vital Signs Blood pressure systolic 118 mm Hg 06/15/19 24 Blood pressure diastolic 72 mm Hg 024 Heart Rate 66 /min 06/15/2023 Height 68.50 in 06/15/2023 Weight 178 lbs 06/15/2023 BMI 26.67 kg/m2 06/15/2023 Encounters Encounter Location Date Provider Diagnosis [facility] [address] [facility] [address] [id number] 06/15/2023 Alex Vazquez Sleep disorder G47.9 and Tendonitis M77.9 Assessments Encounter Date Diagnosis (ICD Code) Assessment Notes Treatment Notes Treatment Clinical Notes Section Notes 06/15/2023 Sleep disorder (ICD-10 - G47.9) 06/15/2023 Tendonitis (ICD-10 - M77.9) Plan Of Treatment Medication Medication Name Sig Start Date Stop Date Notes predniSONE 10 MG 1 tablet 3 times bhavna ly x 5 days then two times daily x 5 days then 1 daily x 5 days Orally 06/15/2023 QUEtiapine Fumarate 100 MG 1 tab(s) oral ly once a day (in the evening); Duration: 90 day(s) 01/06/2022 Next Appt Details Follow Up: prn, Reason: Progress Notes * ZELDA RAEDOB:[birth year] (44 yo F)Acc No.[id number]:06/15/2023 Progress Notes Patient: ZELDA ARCHULETA Provider: Alex Vazquez M.D. :1980 A ge:42 Y S ex:Female Date:06/15/2023 Address:[address], [id number] Subjective: * Chief Complaints: * 1 . Left shoulder pain. * HPI: S houlder/Upper arm: 42 year old female presents with c/o shoulder pain P t presents today with c/o pain in her left trapezius and shoulder and c/o pain in the left elbow for 2 weeks. No hx of injury. Pt sts that she has been using a massager and ice on her shoulder. Pt sts that she has been doing an exercise class and feels that maybe her left shoulder and elbow are just a little over worked. Pt is taking OTC Ibuprofen to help with the pain. H PI: Pt would like to see about getting refills today while she is in the office. * ROS: D ERMATOLOGY: no R valeriy. n o H nancy. G ASTROENTEROLOGY: no N ausea. n o V omiting. U ROLOGY: no D ifficulty urinating. n o B lood in urine. * Medical History: A llergies, ADHD, Anxiety/Depression , Hepatitis C, Treated in 2018. * Surgical History: W isdom Teeth Extracted , Cervical Cryo, Cervical Biopsy- Dysplasia , Rhinoplasty 04/2010. * Hospitalization/Major Diagno stic Procedure: F acial Cellulitis 09/2009. * Family History: F ather: alive 55 yrs. M other: alive 55 yrs. 2 brother(s) . 1 daughter(s) - healthy. . * Social History: C URRENT TOBACCO USE S moking Status: Patient does smoke, number of cigarettes per day: 10. C affeine: yes, frequency:. Marital Status: Single. Past smoking status: yes, PPD:1/2 , years: since age 11 ,determination:. Alcohol: Type: , Frequency: socially ,Years: , Determination:. * Medications: T aking Probiotic Blend - Capsule as directed Orally , Taking Vitamin B-12 1000 MCG Tablet 1 tablet Orally Once a day , Taking Vitamin B-6 100 MG Tablet 1 tablet Orally Once a day , Taking Calcium 600 MG Tablet 1 tablet with meals Orally Twice a day , Taking Zinc 50 MG Tablet 1 tablet Orally Once a day , Taking Vitamin C 1000 MG Tablet 1 tablet Orally Once a day , Taking Vitamin D3 125 MCG (5000 UT) Capsule 1 tab(s) Orally once a day , Taking ZyrTEC Allergy 10 MG Tablet 1 tab(s) orally once a day , Taking QUEtiapine Fumarate 100 MG Tablet 1 tab(s) orally once a day (in the evening) , Not-Taking Cipro 250 MG Tablet 1 tablet Orally every 12 hrs , Not-Taking Metaxalone 800 MG Tablet 1 tab(s) orally 3 times a day , Discontinued B-12 5000 MCG TABLET, EXTENDED RELEASE 1 TAB(S) ORALLY ONCE A DAY , Notes to Pharmacist: *Please review and pick correct strength-formulation from Medispan options. If intended option is not shown, discontinue and re-order from Quick Search*, Discontinued Meclizine HCl 25 MG Tablet 1 tablet as needed Orally Three times a day , Discontinued Promethazine- DM 6.25-15 MG/5ML Syrup 5 ml as needed Orally every 6 hrs prn , Discontinued valACYclovir HCl 1 GM Tablet 2 tab(s) orally 2 times a day , Medication List reviewed and reconciled with the patient * Allergies: N .K.D.A. Objective: * Vitals: W t:178, Temp:98.7, BP:118/72, HR:66, Nurse:RAJESH, Ht: 68.50, BMI:26.67. * Examination: G eneral Examination: S he appears in no distress. Left shoulder and elbow shows no deformity. No acute joint swelling redness or warmth. She has good range of motion of the shoulder and elbow. There is tenderness to palpation left upper trapezius, anterior shoulder, and lateral elbow. Assessment: * Assessment: 1. T endonitis - M77.9 (Primary) 2 . S leep disorder - G47.9 ? Plan: * Treatment: 2. S leep disorder Refill QUEtiapine Fumarate Tablet, 100 MG, 1 tab(s), orally, once a day (in the evening), 90 day(s), 90, Refills 1. * Follow Up: p rn * Images: Billing Information: * Visit Code: 27694 Office Visit, Est Pt., Level 3. * Procedure Codes: * Electronic signature of Alex Vazquez MD on 11/03/2024 at 12:14 PM EDT Sign off status: Pending * Provider: Alex Vazquez M.D. Date: 06/15/2023 Generated for Vonda garcia/Nancy/Mellisaitting on: 0 11/03/2024 12:14 PM EDT History and Physical Notes * HPI (History of Present Illness) Category Sub-Category Detail Notes Category Not es Shoulder/Upper arm shoulder pain Pt presents t olesya with c/o pain in her left trapezius and shoulder and c/o pain in the left elbow for 2 weeks. No hx of injury. Pt sts that she has been using a massager and ice on her shoulder. Pt sts that she has been doing an exercise class and feels that maybe her left shoulder and elbow are just a little over worked. Pt is taking OTC Ibuprofen to help with the pain Examination Category Sub-Category Detail Notes Category Not es General Examination She appe ars in no distress. Left shoulder and elbow shows no deformity. No acute joint swelling redness or warmth. She has good range of motion of the shoulder and elbow. There is tenderness to palpation left upper trapezius, anterior shoulder, and lateral elbow.
--- OUTSIDE RECORDS SUMMARY | 2023-10-27 10:45 | XMS_ITS ---
[facility] Organization [facility] [address] [facility] [address] [facility] [address] [place] [id number] Care Team Providers Care Tag Stringer Name Role Phone Alex Vazquez Primary Care Provider Kate Arredondo Unavailable [phone] Allergies No Known Allergies Results Component Value Reference Range Notes Urinalysis - Inhouse Reviewed date:10/27/2023 04:08:10 PM Interpretation: Performing Lab: Notes/Report: Color/Clarity yellow/clear Leuk Neg Nitrite Neg Urobili 3.2 Protein Neg pH 5.5 Blood Neg Sp. Gr. 1.025 Ketone Neg Bili Neg Gluc Neg REASON FOR VISIT concerns of kidney stones, issues with walking Medications Medication SIG (Take, Route, Frequency, Duration) Notes Start Date End Date Status Medrol 4 MG as directed orally daily; Duration: 6 days 10/27/2023 Active Vitamin D3 125 MCG (5000 UT) 1 tab(s) Or ally once a day Active Vitamin C 1000 MG 1 tablet Orally Once a day; Duration: 30 day(s) Active QUEtiapine Fumarate 100 MG 1 tab(s) oral ly once a day (in the evening); Duration: 90 day(s) 01/06/2022 Active ZyrTEC Allergy 10 MG 1 tab(s) orally onc e a day Active valACYclovir HCl 1 GM 2 tab(s) orally 2 times a day 03/10/2021 Active Calcium 600 MG 1 tablet with meals Orally Twice a day; Duration: 30 day(s) Active Vitamin B-6 100 MG 1 tablet Orally Once a day; Duration: 30 day(s) Active Vitamin B-12 1000 MCG 1 tablet Orally On ce a day; Duration: 30 day(s) Active Probiotic Blend - as directed Orally Active Cyclobenzaprine HCl 10 MG 1 tab(s) Orall y three times a day as needed 10/27/2023 Active Vital Signs Blood pressure systolic 112 mm Hg 10/27/19 24 Blood pressure diastolic 80 mm Hg 024 Heart Rate 84 /min 10/27/2023 Height 68.50 in 10/27/2023 Weight 185.0 lbs 10/27/2023 BMI 27.72 kg/m2 10/27/2023 Encounters Encounter Location Date Provider Diagnosis [facility] [address] [place], [place] [id number] 10/27/2023 Kate Arredondo Acute right-sided lo w back pain without sciatica M54.50 and Back muscle spasm M62.830 Assessments Encounter Date Diagnosis (ICD Code) Assessment Notes Treatment Notes Treatment Clinical Notes Section Notes 10/27/2023 Acute right-sided low back pain without sciatica (ICD-10 - M54.50) Will need to remain off work the rest of this week. Will give a steroid shot today and start a dosepack tomorrow. Gentle stretching. 10/27/2023 Back muscle spasm (ICD-10 - M62.830) Plan Of Treatment Medication Medication Name Sig Start Date Stop Date Notes Medrol 4 MG as directed orally d aily; Duration: 6 days 10/27/2023 Cyclobenzaprine HCl 10 MG 1 tab(s) Orall y three times a day as needed 10/27/2023 Treatment Notes Assessment Notes Acute right-sided low back p ain without sciatica Will need to remain off work the rest of this week. Will give a steroid shot today and start a dosepack tomorrow. Gentle stretching. Next Appt Details Follow Up: prn, Reason: Medications Administered Medication Instructions Date of Administration Dosage Notes Dexamethasone 10/27/2023 1 mL Progress Notes * ZELDA CORTEZDOB:[birth year] (44 yo F)Acc No.[id number]:10/27/2023 Progress Notes Patient: ZELDA ARCHULETA Provider: KERA Hayward :1980 A ge:43 Y S ex:Female Date:10/27/2023 Address:[facility] [address], [place], [id number] Pcp:Alex Vazquez Subjective: * Chief Complaints: * 1 . Concerns of kidney stones, issues with walking. * HPI: U rology: The pt is here today with c/o pain in the right lower back. Pt states this started about a week ago with mild pain and she states she woke up this morning with a fever blister and worsening pain. Pt rates the pain about a 7/10 on the pain scale. Denies : frequent urination. D enies : burning sensation.?Denies : hematuria. D enies : fever. * ROS: D ERMATOLOGY: no R valeriy. n o H nancy. G ASTROENTEROLOGY: no N ausea. n o V omiting. n o D iarrhea.? U ROLOGY: no D ifficulty urinating. n [...] meals Orally Twice a day , Taking Vitamin C 1000 MG Tablet 1 tablet Orally Once a day , Taking Vitamin D3 125 MCG (5000 UT) Capsule 1 tab(s) Orally once a day , Taking ZyrTEC Allergy 10 MG Tablet 1 tab(s) orally once a day , Taking QUEtiapine Fumarate 100 MG Tablet 1 tab(s) orally once a day (in the evening) , Taking valACYclovir HCl 1 GM Tablet 2 tab(s) orally 2 times a day , Discontinued Zinc 50 MG Tablet 1 tablet Orally Once a day , Discontinued predniSONE 10 MG Tablet 1 tablet 3 times daily x 5 days then two times daily x 5 days then 1 daily x 5 days Orally , Discontinued Cipro 250 MG Tablet 1 tablet Orally every 12 hrs , Discontinued Metaxalone 800 MG Tablet 1 tab(s) orally 3 times a day , Medication List reviewed and reconciled with the patient * Allergies: N .K.D.A. Objective: * Vitals: W t:185.0, Temp:97.5, BP:112/80, HR:84, Nurse:WILLIAM, Ht: 68.50, BMI:27.72. * Examination: G eneral Examination: General Appearance: N AD. C hest: n ormal shape and expansion. H eart: R SR. L ungs: c lear to auscultation. B ack: no spinal tenderness, there is lumbar paraspinal muscle spasm and ttp along the right SI joint and piriformis muscle, pain with figure 4 test. Assessment: * Assessment: 1. A cute right-sided low back pain without sciatica - M54.50 (Primary) 2 .?Back muscle spasm - M62.830 Plan: * Treatment: Value Reference Range C olor/Clarity yellow/clear * L euk Neg * N itrite Neg * U robili 3.2 * P rotein Neg * p H 5.5 * B lood Neg * S p. Gr. 1.025 * K etone Neg * B kim Neg * G arlene Neg * Corina Dowd 10/27/2023 2:5 4:52 PM > , Provider reviewed results while patient in office.Kate Arredondo 10/27/2023 4:08:07 PM > Notes: Will need to remain off work the rest of this week. Will give a steroid shot today and starta dosepack tomorrow. Gentle stretching.??2.?Back muscle spasm? Start Cyclobenzaprine HCl Tablet, 10 MG, 1 tab(s), Orally, three times a day as needed, 30, Refills2.?? * Therapeutic Injections: Dexamethasone : 1 mL (Route: Intramuscular) given by Corina Dowd on right gluteus (Acute right-sided low back pain without sciatica, Back muscle spasm) * Procedure Codes: 8 1002 Urinalysis, no micro, J1100 Dexamethasone, 76291 ADMINISTRATION OF INJECTION * Follow Up: p rn * Images: Billing Information: * Visit Code: 48177 Office Visit, Est Pt., Level 3. * Procedure Codes: 66768 Urinalysis, no micro. J1100 Dexamethasone. 99745 ADMINISTRATION OF INJECTION. * Electronic signature of KERA Garza on 11/03/2024 at 12:14 PM EDT Sign off status: Pending * Provider: KERA Hayward Date: 10/27/2023 Generated for Vonda garcia/Nancy/Ambersmitting on: 11/03/2024 12:14 PM EDT History and Physical Notes * HPI (History of Present Illness) Category Sub-Category Detail Notes Category Not es Urology frequent urination burning sensation hematuria fever Examination Category Sub-Category Detail Notes Category Not es General Examination Heart: RSR Lungs: clear to auscultatio n General Appearance: NAD Back: no spinal tenderness , there is lumbar paraspinal muscle spasm and ttp along the right SI joint and piriformis muscle, pain with figure 4 test Chest: normal shape and exp ansion
--- OUTSIDE RECORDS SUMMARY | 2024-01-07 11:45 | XMS_ITS ---
Author [facility] Address [address] [facility] [address] [place] [id number] Care Team Providers Care Contact Worker Lithography Name Role Phone Alex Vazquez Primary Care Provider Kate Arredondo Unavailable [phone] Allergies No Known Allergies Results Component Value Reference Range Notes Influenza Screen (in house) Reviewed date:01/09/2024 10:43:33 PM Interpretation:neg Performing Lab: Notes/Report: neg results neg Rapid Strep- Inhouse Reviewed date:01/09/2024 10:43:33 PM Interpretation:neg Performing Lab: Notes/Report: neg strep test neg CBC Fingerstick (in house) Reviewed date:01/09/2024 10:43:33 PM Interpretation: Performing Lab: Notes/Report: wbc 10.0 3.5 - 10 lym 29.3 15 - 50 mid 6.9 2 - 15 gran 63.8 35 - 80 rbc 4.81 3.5 - 5.5 hgb 14.4 11.5 - 16.5 hct 44.0 35 - 55 mcv 91.4 75 - 100 mch 29.9 25 - 35 mchc 32.8 31 - 38 plat 203 100 - 400 Covid test (in house) Reviewed date:01/09/2024 10:43:33 PM Interpretation:neg Performing Lab: Notes/Report: neg Result: neg REASON FOR VISIT congestion, sore throat, chills Medications Medication SIG (Take, Route, Frequency, Duration) Notes Start Date End Date Status Cyclobenzaprine HCl 10 MG 1 tab(s) Orall y three times a day as needed 10/27/2023 Active Medrol 4 MG as directed orally daily; Duration: 6 days 10/27/2023 Active valACYclovir HCl 1 GM 2 tab(s) orally 2 times a day 03/10/2021 Active ZyrTEC Allergy 10 MG 1 tab(s) orally onc e a day Active QUEtiapine Fumarate 100 MG 1 tab(s) oral ly once a day (in the evening); Duration: 90 day(s) Active Vitamin D3 125 MCG (5000 UT) [...] Probiotic Blend - as directed Orally Active Vital Signs Blood pressure systolic 118 mm Hg 01/07/20 24 Blood pressure diastolic 78 mm Hg 024 Heart Rate 83 /min 01/07/2024 Height 68.50 in 01/07/2024 Weight 186.0 lbs 01/07/2024 BMI 27.87 kg/m2 01/07/2024 Encounters Encounter Location Date Provider Diagnosis [facility] [address] [facility] [address] [place] [phone] 01/07/2024 Kate Arredondo Acute URI J06.9 Assessments Encounter Date Diagnosis (ICD Code) Assessment Notes Treatment Notes Treatment Clinical Notes Section Notes 01/07/2024 Acute URI (ICD-10 - J06.9) fluids, rest, supportive measures for fever/symptom relief, patient has cough medication at home Plan Of Treatment Treatment Notes Assessment Notes Acute URI fluids, rest, suppor tive measures for fever/symptom relief, patient has cough medication at home Next Appt Details Follow Up: prn, Reason: Progress Notes * ZELDA CORTEZDOB:[birth year] (44 yo F)Acc No.[id number]:01/07/2024 Progress Notes Patient: ZELDA ARCHULETA Provider: KERA Hayward :1980 A ge:43 Y S ex:Female Date:01/07/2024 Address:[facility] [address], [place], [id number] Pcp:Alex Vazquez Subjective: * Chief Complaints: * 1 . Congestion, sore throat, chills. * HPI: E NT/respiratory: 43 year old female presents with c/o sore throat. c/o nasal congestion. c/o ear pain p ressure, worse today. c/o body aches. Denies : cough. D enies : headache. Pt sts her symptoms started yesterday. * ROS: D ERMATOLOGY: no R valeriy. [...] tab(s) orally once a day , Taking valACYclovir HCl 1 GM Tablet 2 tab(s) orally 2 times a day , Taking Medrol 4 MG Tablet Therapy Pack as directed orally daily , Taking Cyclobenzaprine HCl 10 MG Tablet 1 tab(s) Orally three times a day as needed , Taking QUEtiapine Fumarate 100 MG Tablet 1 tab(s) orally once a day (in the evening) , Medication List reviewed and reconciled with the patient * Allergies: N .K.D.A. Objective: * Vitals: W t:186.0, Temp:98.0, BP:118/78, HR:83, Nurse:DURGA, Ht: 68.50, BMI:27.87. * Examination: E NT/Respiratory: General Appearance: N AD. E ars: a uditory canals normal bilaterally, TM's WNL. N ose : turbinates red, congested. S inuses : non tender bilaterally. O ral cavity : erythema without exudate on pharynx, PND present. N madeline : n o cervical lymphadenopathy. H eart : R RR, normal S1 S2, no murmurs. L ungs:?clear to auscultation bilaterally. Assessment: * Assessment: 1. Noam pham URI - J06.9 (Primary) Plan: * Treatment: Value Reference Range r esults neg * Sil Sarah 01/07/2024 3:59 :35 PM > Provider reviewed results while patient in office. ?LAB: Rapid Strep- Inhouse (Collection Date & Time - 01/07/2024)?neg* Value Reference Range s trep test neg * Sil Sarah 01/07/2024 3:59 :55 PM > Provider reviewed results while patient in office. ?LAB: CBC Fingerstick (in house) (Collection Date & Time - 01/07/2024)* Value Reference Range w bc 10.0 3.5 - 10 * l ym 29.3 15 - 50 * m id 6.9 2 - 15 * g ran 63.8 35 - 80 * r bc 4.81 3.5 - 5.5 * h gb 14.4 11.5 - 16.5 * h ct 44.0 35 - 55 * m cv 91.4 75 - 100 * m ch 29.9 25 - 35 * m chc 32.8 31 - 38 * p lat 203 100 - 400 * Sil Sarah 01/07/2024 4:00 :45 PM > Provider reviewed results while patient in office. ?LAB: Covid test (in house) (Collection Date & Time - 01/07/2024)?neg* Value Reference Range R esult: neg * Sil Sarah 01/07/2024 3:59 :12 PM > Provider reviewed results while patient in office. Notes: fluids, rest, supportive measures for fever/symptom relief, patient has cough medication at home?? * Procedure Codes: 3 6416 CAPILLARY BLOOD DRAW, 81080 CBC WITH AUTO DIFF, 36327 Flu Test- Nasal Swab, Modifiers: QW , 74522 STREP A ASSAY W/OPTIC, Modifiers: QW , 42051 COVID TEST IN HOUSE, Modifiers: QW * Follow Up: p rn * Images: Billing Information: * Visit Code: 13998 Office Visit, Est Pt., Level 3. * Procedure Codes: 48954 CAPILLARY BLOOD DRAW. 27778 CBC WITH AUTO DIFF. 97105 Flu Test- Nasal Swab. Modifiers: QW 37262 STREP A ASSAY W/OPTIC. Modifiers: QW 01817 COVID TEST IN HOUSE. Modifiers: QW * Electronic signature of KERA Garza on 11/03/2024 at 12:14 PM EDT Sign off status: Pending * Provider: KERA Hayward Date: 03/08/2023 Generated for Vonda garcia/Fayamileg/eTransmitting on: 0 11/03/2024 12:14 PM EDT History and Physical Notes * HPI (History of Present Illness) Category Sub-Category Detail Notes Category Not es ENT/respiratory sore throat Pt sts her s ymptoms started yesterday ear pain pressure, worse toda y cough headache nasal congestion body aches Examination Category Sub-Category Detail Notes Category Not es ENT/Respiratory Oral cavity : erythema without exudate on pharynx, PND present Sinuses : non tender bilateral ly Ears: auditory canals norm al bilaterally, TM's WNL Neck : no cervical lymphade nopathy Heart : RRR, normal S1 S2, n o murmurs Lungs: clear to auscultatio n bilaterally General Appearance: NAD Nose : turbinates red, yina ested
--- OUTSIDE RECORDS SUMMARY | 2024-09-14 05:15 | XMS_ITS ---
Author Organization [facility] Address [address] [place] [id number] Care Team Providers Care V Belt Skiver Name Role Phone Alex Vazquez Primary Care Provider Wilbur Romero Unavailable [phone] Allergies No Known Allergies Results Component Value Reference Range Notes CBC Venipuncture (in house) Reviewed date:09/14/2024 12:36:48 PM Interpretation: Performing Lab: Notes/Report: wbc 8.8 3.5 - 10 lymph 25.7% 15 - 50 mid 6.7% 2 - 15 gran 67.6% 35 - 80 rbc 4.32 3.5 - 5.5 hgb 13.1 11.5 - 16.5 hct 38,6 35 - 55 mcv 89.4 75 - 100 mch 39.3 25 - 35 mchc 33.9 31 - 38 platlet 314 100 - 400 P-Vitamin B12 Reviewed date:09/15/2024 07:47:06 AM Interpretation:Normal Performing Lab: Notes/Report: Test performed by [facility] [address] [place], [place] [address] [place] , [place] [address] MD, [employer] CLIA: [id number] Vitamin B12 091 551-9594 pg/mL P-Comprehensive Metabolic Pa alexis (CMP) Reviewed date:09/15/2024 07:47:06 AM Interpretation:Normal Performing Lab: Notes/Report: Test performed by [facility] [address] [place], [place] [address] [place] , [place] [address] MD, [employer] CLIA: [id number] Sodium 140 135-145 mmol/L Potassium 4.4 3.5-5.3 mmol/L Chloride 105 97-108 mmol/L CO2 24 20-32 mmol/L Glucose 94 65-99 mg/dL BUN 10 6-20 mg/dL Creatinine 0.82 0.50-1.00 mg/dL Calcium 9.6 8.6-10.4 mg/dL eGFR by Creatinine 89 >59 mL/min/1.73m2 Protein 6.6 6.0-8.3 g/dL Albumin 4.4 3.5-5.3 g/dL Alkaline Phosphatase 41 35-121 IU/L ALT (SGPT) 23 <5-47 IU/L AST (SGOT) 19 <5-40 IU/L Bilirubin, Total 0.3 <0.2-1.2 mg/dL A/G Ratio 2.0 1.1-2.5 P-Lipid Panel Reviewed date:09/15/2024 07:47:06 AM Interpretation:Chol 231, Chol/HDL 4.81, Non-HDL 183, LDL 157, LDL/HDL 3.3 Performing Lab: Notes/Report: Test performed by [employer], [facility] [address] [place] [address] , [address], [place] [address] MD, [employer] CLIA: [id number] Cholesterol 231 <200 mg/dL Triglycerides 132 <150 mg/dL HDL Cholesterol 48 >39 mg/dL Cholesterol / HDL Ratio 4.81 0.00-4.44 Ratio Non-HDL Cholesterol 183 <130 mg/dL LDL Cholesterol (Calculation) 157 <130 mg/dL LDL Cholesterol Levels* Less than 100 mg/dL Optimal 100 to 129 mg/dL Near Optimal/ Above Optimal 130 to 159 mg/dL Borderline High 160 to 189 mg/dL High 190 mg/dL and above Very High * Categories as recommended by the 2004 ATPIII guidelines LDL/HDL Ratio 3.3 <3.3 Ratio LDL Cholesterol Patient History Test Date: 09/14/2024 LDL Results: 157 Units: mg/dL % Change: - P-TSH reflex to FT4 Reviewed date:09/15/2024 07:47:06 AM Interpretation:Normal Performing Lab: Notes/Report: Test performed by [facility] [address] [place] [address] , [place] [address] MD, [employer] CLIA: [id number] TSH reflex to FT4 1.26 0.43-5.25 mU/L P-Vitamin D 25-Hydroxy Reviewed date:09/15/2024 07:47:06 AM Interpretation:Normal Performing Lab: Notes/Report: Test performed by [facility] [address] [place] [address] , [facility] [place] [address] MD, [employer] CLIA: [id number] Vitamin D 25-Hydroxy 63.8 30.0-100.0 ng/mL Interpretation of Vitamin D 25 OH: < 20 ng/mL - Deficiency 20 - 29 ng/mL - Insufficiency 30 - 100 ng/mL - Sufficiency > 100 ng/mL - Super-therapeutic- toxicity may occur above this level. Clinical correlation required. REASON FOR VISIT BW and shingles shot, refills Medications Medication SIG (Take, Route, Frequency, Duration) Notes Start Date End Date Status Famotidine 40 MG 1 tablet Orally Once a day; Duration: 90 days 09/14/2024 Active QUEtiapine Fumarate 100 MG 1 tab(s) oral ly once a day (in the evening); Duration: 90 days Active Probiotic Blend - as directed Orally Active valACYclovir HCl 1 GM 2 tab(s) orally 2 times a day 03/10/2021 Not-Taking Cyclobenzaprine HCl 10 MG 1 tab(s) Orall y three times a day as needed 10/27/2023 Active Vitamin C 1000 MG 1 tablet Orally Once a day; Duration: 30 day(s) Active Vitamin D3 125 MCG (5000 UT) 1 tab(s) Orally once a day Active ZyrTEC Allergy 10 MG 1 tab(s) orally onc e a day Not-Taking Vitamin B-6 100 MG 1 tablet Orally Once a day; Duration: 30 day(s) Active Nicotine Step 1 21 MG/24HR 1 patch to sk in Transdermal Once a day 09/14/2024 Active Calcium 600 MG 1 tablet with meals Orally Twice a day; Duration: 30 day(s) Active Vitamin B-12 1000 MCG 1 tablet Orally On ce a day; Duration: 30 day(s) Active Problems Problem Type SNOMED Code ICD Code Onset Dates Problem Status W/U Status Risk Notes Problem Disorder of neck (322154547) Disorder of neck (M53.82) Active confirmed Problem Memory loss (49100921) Memory loss (R41.3) Active confirmed Vital Signs Blood pressure systolic 114 mm Hg 09/15/19 25 Blood pressure diastolic 70 mm Hg 025 Heart Rate 80 /min 09/14/2024 Height 68.50 in 09/14/2024 Weight 183.4 lbs 09/14/2024 BMI 27.48 kg/m2 09/14/2024 Encounters Encounter Location Date Provider Diagnosis [facility] [address] [facility] [address] [place] [id number] 09/14/2024 Wilbur Bow Mixed hyperlipidemia E78.2 ; Vitamin D deficiency E55.9 ; Disorder of neck M53.82 ; Heartburn R12 ; Tobacco dependence F17.200 ; Insomnia, unspecified G47.00 ; Depression with anxiety F41.8 and Memory loss R41.3 Assessments Encounter Date Diagnosis (ICD Code) Assessment Notes Treatment Notes Treatment Clinical Notes Section Notes 09/14/2024 Mixed hyperlipidemia (ICD-10 - E78.2) 09/14/2024 Vitamin D deficiency (ICD-10 - E55.9) 09/14/2024 Disorder of neck (ICD-10 - M53.82) 09/14/2024 Heartburn (ICD-10 - R12) 09/14/2024 Tobacco dependence (ICD-10 - F17.200) 09/14/2024 Insomnia, unspecified (ICD-10 - G47.00) 09/14/2024 Depression with anxiety (ICD-10 - F41.8) 09/14/2024 Memory loss (ICD-10 - R41.3) Plan Of Treatment Medication Medication Name Sig Start Date Stop Date Notes Famotidine 40 MG 1 tablet Orally Once a day; Duration: 90 days 09/14/2024 QUEtiapine Fumarate 100 MG 1 tab(s) oral ly once a day (in the evening); Duration: 90 days Cyclobenzaprine HCl 10 MG 1 tab(s) Orall y three times a day as needed 10/27/2023 Nicotine Step 1 21 MG/24HR 1 patch to sk in Transdermal Once a day 09/14/2024 Next Appt Details Follow Up: via phone to repo rt test results,via phone to report progress, Reason: Progress Notes * ALVA CORTEZALCIDESDOB:[birth year] (44 yo F)Acc No.[id number]:09/14/2024 Progress Notes Patient: ZELDA ARCHULETA Provider: Olga Romero M.D. :1980 A ge:43 Y S ex:Female Date:09/14/2024 Address:[facility] [address], [facility], [id number] Pcp:Alex Vazquez Subjective: * Chief Complaints: * 1 . BW and shingles shot, refills. * HPI: C ardiology: 43 year old female presents with c/o Hyperlipidemia P t here for check up. Pt states she is doing well and does not have any concerns. Pt is fasting today.? G astroenterology: c/o Acid Reflux P t complains of occassional reflux. Pt states she has noticed it worsening over the last couple months. G YN: c/o hot flashes P t complains of getting hot flashes when she is on her menstral cycle. Pt states she has had brain fog as well. Pt states a doctor that she works with mentioned possible Perimenopause so pt have been taking OTC Amberon. Pt states supplement has helped and she does feel a little better. * ROS: D ERMATOLOGY: no R valeriy. [...] tab(s) Orally once a day , Taking Cyclobenzaprine HCl 10 MG Tablet 1 tab(s) Orally three times a day as needed , Taking QUEtiapine Fumarate 100 MG Tablet 1 tab(s) orally once a day (in the evening) , Not-Taking ZyrTEC Allergy 10 MG Tablet 1 tab(s) orally once a day , Not-Taking valACYclovir HCl 1 GM Tablet 2 tab(s) orally 2 times a day , Discontinued Medrol 4 MG Tablet Therapy Pack as directed orally daily , Discontinued Bromfed DM 2-30-10 MG/5ML Syrup 5-10 mL Orally four times a day, prn * Allergies: N .K.D.A. Objective: * Vitals: W t: 183.4, Temp: 97.7, BP: 114/70, HR: 80, Nurse: kk, Ht: 68.50, BMI:27.48. * Examination: P sychology: General Appearance: N AD. G rooming : a dequate.?Eye contact : n ormal. M ood : p leasant. H eart: R SR. L ungs: c lear to auscultation. N eurologic Exam: I ntact, gait normal. N madeline: Vertebral spine tenderness: a bsent. P araspinal muscle spasm: p resent bilaterally. R sobeida of motion of neck: n ormal in all directions. T rapezius tenderness: p resent bilaterally. Assessment: * Assessment: 1. M ixed hyperlipidemia - E78.2 (Primary) 2 . V itamin D deficiency - E55.9 3 . D isorder of neck - M53.82 4 . H eartburn - R12 ? 5 . T obacco dependence - F17.200 6 . I nsomnia, unspecified - G47.00 7 . D epression with anxiety - F41.8 8 . M mirian loss - R41.3 Plan: * Treatment: Value Reference Range A /G Ratio 2.0 1.1-2.5 - * A lbumin 4.4 3.5-5.3 - g/dL * A lkaline Phosphatase 41 35-121 - IU/L * A LT (SGPT) 23 <5-47 - IU/L * A ST (SGOT) 19 <5-40 - IU/L * B ilirubin, Total 0.3 <0.2-1.2 - mg/dL * B UN 10 6-20 - mg/dL * C alcium 9.6 8.6-10.4 - mg/dL * C hloride 105 97-108 - mmol/L * C O2 24 20-32 - mmol/L * C reatinine 0.82 0.50-1.00 - mg/dL * G lucose 94 65-99 - mg/dL * P otassium 4.4 3.5-5.3 - mmol/L * S odium 140 135-145 - mmol/L * P rotein 6.6 6.0-8.3 - g/dL * e GFR by Creatinine 89 >59 - mL/min/1.73m2 * Jennifer Baxter 09/15/2024 07:4 6:58 AM EDT > See phone encounter ?LAB: P-Lipid Panel (Collection Date & Time - 09/14/2024 08:56 AM)?Chol 231, Chol/HDL 4.81, Non-HDL 183, LDL 157, LDL/HDL 3.3* Value Reference Range C holesterol / HDL Ratio 4.81 H 0.00-4.44 - Ratio * C holesterol 231 H <200 - mg/dL * H DL Cholesterol 48 >39 - mg/dL * L DL Cholesterol (Calculation) 157 H <130 - mg/d L * L DL/HDL Ratio 3.3 H <3.3 - Ratio * N on-HDL Cholesterol 183 H <130 - mg/dL * T riglycerides 132 <150 - mg/dL * SahilJennifer 09/15/2024 07:4 6:58 AM EDT > See phone encounter ?LAB: P-TSH reflex to FT4 (Collection Date & Time - 09/14/2024 08:56 AM)? Normal* Value Reference Range T SH reflex to FT4 1.26 0.43-5.25 - mU/L * Jennifer Baxter 09/15/2024 07:4 6:58 AM EDT > See phone encounter 2.?Vitamin D deficiency?LAB: P-Vitamin D 25-Hydroxy (Collection Date & Time - 09/14/2024 08:56 AM)? Normal* Value Reference Range V itamin D 25-Hydroxy 63.8 30.0-100.0 - ng/mL * Sahil Jennifer 09/15/2024 07:4 6:58 AM EDT > See phone encounter 3.?Disorder of neck? Refill Cyclobenzaprine HCl Tablet, 10 MG, 1 tab(s), Orally, three times a day as needed, 30, Refills 1.??4.?Heartburn? Start Famotidine Tablet, 40 MG, 1 tablet, Orally, Once a day, 90 days, 90 Tablet, Refills 1.? 5.?Tobacco dependence? Start Nicotine Step 1 Patch 24 Hour, 21 MG/24HR, 1 patch to skin, Transdermal, Once a day, 30, Refills 0.??6.?Insomnia, unspecified? Refill QUEtiapine Fumarate Tablet, 100 MG, 1 tab(s), orally, once a day (in the evening), 90 days, 90, Refills 1.??7.?Memory loss?LAB: P-Vitamin B12 (Collection Date & Time - 09/14/2024 08:56 AM)?Normal* Value Reference Range V itamin B12 823 312-4607 - pg/mL * Jennifer Baxter 09/15/2024 07:4 6:58 AM EDT > See phone encounter ?LAB: CBC Venipuncture (in house) (Collection Date & Time - 09/14/2024)* Value Reference Range w bc 8.8 3.5 - 10 * l ymph 25.7% 15 - 50 * m id 6.7% 2 - 15 * g ran 67.6% 35 - 80 * r bc 4.32 3.5 - 5.5 * h gb 13.1 11.5 - 16.5 * h ct 38,6 35 - 55 * m cv 89.4 75 - 100 * m ch 39.3 25 - 35 * m chc 33.9 31 - 38 * p latlet 314 100 - 400 * Amara White 09/14/2024 10:19: 23 AM EDT > Provider reviewed results while patient in office. * Procedure Codes: 8 5025 CBC WITH AUTO DIFF, 3074F SYST BP LT 130 MM HG, 3078F DIAST BP < 80 MM HG * Follow Up: v ia phone to report test results,via phone to report progress * Images: Billing Information: * Visit Code: 37358 Office Visit, Est Pt., Level 4. * Procedure Codes: 36303 CBC WITH AUTO DIFF. 3074F SYST BP LT 130 MM HG. 3078F DIAST BP < 80 MM HG. * Electronic signature of Rylee Romero MD on 11/03/2024 at 12:14 PM EDT Sign off status: Pending * Provider: Olga Romero M.D. 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 Pt states she has had brain fog as well. Pt states a doctor that she works with mentioned possible Perimenopause so pt have been taking OTC Amberon. Pt states supplement has helped and she does feel a little better Cardiology Hyperlipidemia Pt here for chec k up. Pt states she is doing well and does not have any concerns. Pt is fasting today Gastroenterology Acid Reflux Pt complains of occassional reflux. Pt states she has noticed it worsening over the last couple months Examination Category Sub-Category Detail Notes Category Not es Neck Vertebral spine tenderness: absent Paraspinal muscle spasm: present bilater ally Range of motion of neck: normal in all d irections Trapezius tenderness: present bilaterall y Psychology Heart: RSR Lungs: clear to auscultatio n General Appearance: NAD Neurologic Exam: Intact, gait normal Grooming : adequate Eye contact : normal Mood : pleasant
--- OUTSIDE RECORDS SUMMARY | 2024-11-03 12:15 | XMS_ITS | Clinical Summary ---
Author Organization [facility] Address [address] [place] [address] Care Team Providers Care Rfid Specialist Name Role Phone Wilbur Romero MD Primary Care Provider + [phone] Immunizations Immunization Administration Dates Next Due Hep A / Hep B 02/09/2018,09/08/2017,08/09/2017 Social History Tobacco Use Types Packs/Day Years Used Date Smoking Tobacco: Every Day Alcohol Use Standard Drinks/Week Comments No 0 (1 standard drink = 0.6 oz pur e alcohol) Comments Unknown Sex and Gender Information Value Date Recorded Sex Assigned at Not on file Legal Sex Female 6:28 PM EDT Gender Identity Not on file Sexual Orientation Not on file Last Filed Vital Signs Vital Sign Reading Time Taken Comments Blood Pressure 115/75 04/21/2018 1:15 PM EST Pulse 67 04/21/2018 1:15 PM EST Temperature 36.7 C (98.1 F) 04/21/2018 1:15 PM EST Respiratory Rate - - Oxygen Saturation - - Inhaled Oxygen Concentration - - Weight 76.8 kg (169 lb 5.7 oz) 04/21/2018 1:15 P M EST Height 172.7 cm (5' 8 ) 04/21/2018 1:15 PM EST Body Mass Index 25.75 04/21/2018 1:15 PM EST Plan of Treatment Not on file Care Teams Rfid Specialist Relationship Specialty Start Date End Date Wilbur Romero MD [address] [place] [address] PCP - General 06/28/20
--- OUTSIDE RECORDS SUMMARY | 2024-11-03 12:15 | XMS_ITS | Patient Health Record ---
[facility] Address [address] [facility] [address] [place] [id number] Care Team Providers Care Non Profit Financial Controller Name Role Phone Alex Vazquez Primary Care Provider Wilbur Romero Unavailable [phone] Kate Arredondo Unavailable [phone] Allergies No Known Allergies Results Component Value [...] Interpretation:neg Performing Lab: Notes/Report: neg Result: neg CBC Venipuncture (in house) Reviewed date:09/14/2024 12:36:48 [...] Interpretation:Normal Performing Lab: Notes/Report: Test performed by [facility] [address] [place] [address] , [address], [place] [address] MD, [employer] CLIA: [id number] Vitamin B12 [phone] pg/mL P-Comprehensive Metabolic Pa alexis (CMP) Reviewed date:09/15/2024 07:47:06 AM Interpretation:Normal Performing Lab: Notes/Report: Test performed by [facility] [employer] [address] [place] [address] , [address], [place] [address] MD, Therapeutic Recreation Assistant CLIA: [id number] Sodium 140 135-145 mmol/L Potassium 4.4 3.5-5.3 [...] 3.3 Performing Lab: Notes/Report: Test performed by [facility] [address] [place] [address] , [place] [address] MD, Therapeutic Recreation Assistant CLIA: [id number] Cholesterol 231 <200 mg/dL Triglycerides 132 <150 [...] Interpretation:Normal Performing Lab: Notes/Report: Test performed by [facility], [address] , [place] [address] MD, Therapeutic Recreation Assistant CLIA: [id number] TSH reflex to FT4 1.26 0.43-5.25 mU/L P-Vitamin D 25-Hydroxy Reviewed date:09/15/2024 07:47:06 AM Interpretation:Normal Performing Lab: Notes/Report: Test performed by [facility], [employer] [address] [place] [address] , [address], [place] [address] MD, Therapeutic Recreation Assistant CLIA: [id number] Vitamin D 25-Hydroxy 63.8 30.0-100.0 ng/mL Interpretation of Vitamin D 25 OH: < 20 ng/mL - Deficiency 20 - 29 ng/mL - Insufficiency 30 - 100 ng/mL - Sufficiency > 100 ng/mL - Super-therapeutic- toxicity may occur above this level. Clinical correlation required. Medications Medication SIG (Take, Route, Frequency, Duration) Notes Start Date End Date Status Vitamin C 1000 MG 1 tablet Orally Once a day; Duration: 30 day(s) Active Famotidine 40 MG 1 tablet Orally Once a day; Duration: 90 days 09/14/2024 Active Vitamin B-6 100 MG 1 tablet Orally Once a day; Duration: 30 day(s) Active Nicotine Step 1 21 MG/24HR 1 patch to sk in Transdermal Once a day 09/14/2024 Active Calcium 600 MG 1 tablet with meals Orally Twice a day; Duration: 30 day(s) Active QUEtiapine Fumarate 100 MG 1 tab(s) oral ly once a day (in the evening); Duration: 90 days Active Probiotic Blend - as directed Orally Active valACYclovir HCl 1 GM 2 tab(s) orally 2 times a day 03/10/2021 Not-Taking Cyclobenzaprine HCl 10 MG 1 tab(s) Orall y three times a day as needed 10/27/2023 Active Vitamin B-12 1000 MCG 1 tablet Orally On ce a day; Duration: 30 day(s) Active Vitamin D3 125 MCG (5000 UT) 1 tab(s) Orally once a day Active ZyrTEC Allergy 10 MG 1 tab(s) orally onc e a day Not-Taking Immunizations Vaccine Route Administration Date Status Comme nts COVID 19 Moderna Unknown 03/27/2020 Administered DT, 7 YEARS OR OLDER IM Intramuscular 07/15/2005 Administe red Fluzone Quad (6months&older) Unknown 12/11/2015 Administered Fluzone Quad (6months&older) IM Intramuscular 12/16/2017 Administered Twinrix-Hep A and Hep B Unknown 02/09/2018 Administered xFluzone (6mos and older)-trivalent IM Intramuscular 03/22/2014 Administered xFluzone (6mos and older)-trivalent Unknown 12/11/2015 Administered xGardasil IM Intramuscular 11/11/2006 Administered Problems Problem Type SNOMED Code ICD Code Onset Dates Problem Status W/U Status Risk Notes Problem Insomnia (583865063) Insomnia (G47.00) Active c onfirmed Problem Sinusitis (94752411) Sinusitis (J32.9) Active c onfirmed Problem Vitamin D deficiency (56359107) Vitamin D deficiency (E55.9) Active confirmed Problem Mixed anxiety and depressive disorder (332393035) Depression with anxiety (F41.8) Active confirmed Problem Memory loss (62058229) Memory loss (R41.3) Active confirmed Problem Mixed hyperlipidemia (545963853) Mixed hyperlipidemia (E78.2) Active confirmed Problem Insomnia (306481934) Insomnia, u nspecified (G47.00) Active confirmed Problem Tobacco dependence (96530911) Tobacco dependence (F17.200) Active confirmed Problem Bilateral tinnitus (6275406358636) Tinnitus of both ears (H93.13) Active confirmed Problem Sleep disorder (25685225) Sleep disorder (G47.9) Active confirmed Problem Disorder of neck (580106298) Disorder of neck (M53.82) Active confirmed Problem Pure hypercholesterolemia (070038893) Pure hypercholesterolemia (E78.00) Active confirmed Problem Hearing loss (19037663) Bilateral hearing loss, unspecified hearing loss type (H91.93) Active confirmed Problem Solitary sacroiliiti s (271769108) SI (sacroiliac) joint inflammation (M46.1) Active confirmed Vital Signs Heart Rate 80 /min 09/14/2024 Blood pressure diastolic 70 mm Hg 09/14/2024 Height 68.50 in 09/14/2024 Blood pressure systolic 114 mm Hg 09/14/2024 Weight 183.4 lbs 09/14/2024 BMI 27.48 kg/m2 09/14/2024 Encounters Encounter Location Date Provider Diagnosis [facility] [address] [facility] [address] [place], [place] [id number] 01/07/2024 Kate Arredondo Acute URI J06.9 [facility] [address] [place], [place] [id number] 09/14/2024 Wilbur Geronimo Mixed hyperlipidemia E78.2 ; Vitamin D deficiency E55.9 ; Disorder of neck M53.82 ; Heartburn R12 ; Tobacco dependence F17.200 ; Insomnia, unspecified G47.00 ; Depression with anxiety F41.8 and Memory loss R41.3 [facility] [address] [facility] [address] [place], [place] [id number] 01/10/2024 Kate Arredondo [facility] [address] [facility] [address] [place], [place] [id number] 08/21/2024 Alex Vazquez Herpes labialis B00. 1 [facility] [address] [facility] [address] [place], [place] [id number] 09/15/2024 Wilbur Geronimo [facility] [address] [facility] [address] [place], [place] [id number] 09/25/2024 Alex Vazquez Assessments Encounter Date Diagnosis (ICD Code) Assessment Notes Treatment Notes Treatment Clinical Notes Section Notes 01/07/2024 Acute URI (ICD-10 - J06.9) fluids, rest, supportive measures for fever/symptom relief, patient has cough medication at home 08/21/2024 Herpes labialis (ICD-10 - B00.1) 09/14/2024 Vitamin D deficiency (ICD-10 - E55.9) 09/14/2024 Mixed hyperlipidemia (ICD-10 - E78.2) 09/14/2024 Disorder of neck (ICD-10 - M53.82) 09/14/2024 Heartburn (ICD-10 - R12) 09/14/2024 Tobacco dependence (ICD-10 - F17.200) 09/14/2024 Insomnia, unspecified (ICD-10 - G47.00) 09/14/2024 Depression with anxiety (ICD-10 - F41.8) 09/14/2024 Memory loss (ICD-10 - R41.3) Plan Of Treatment Pending Test Test Name Order Date X ray : Spine, lumbosacral 11/03/2023 X ray : SI joint, bilateral 11/03/2023 Insurance Providers Payer Name Payer Address Payer Phone Subscriber Number Group Number Insured Name Patient Relationship to Insured Coverage Start Date Coverage End Date [facility] [address] [place] [phone] [id number] ZELDA CESAR Self - patient is the insured Medications Administered Medication Instructions Date of Administration Dosage Notes Dexamethasone 10/27/2023 1 mL rocephin one gram IM 09/19/2009 1gr rocephin one gram IM 11/10/2012 1 Medical (General) History Medical History History ICD Code Allergies ADHD Anxiety/Depression Hepatitis C, Treated in 2018 Surgical History Surgery Date(Month/Year) Globe Teeth Extracted Cervical Cryo, Cervical Biopsy- Dysplasi a Rhinoplasty 04/2010 Hospitalization History Reason Date(Month/Year) Facial Cellulitis 09/2009
== END 2024-11-02 23:59 | disposition home or self-care (01) ==
LOC: LAB.DROPOF 11-03 12:13
PROVIDERS: PCP Obstetrics & Gynecology; Visit Provider Obstetrics & Gynecology
DX: N89.8 Other specified noninflammatory disorders of vagina (principal)
CPT/HCPCS: 87491; 87529; 87591; 87661; 87798; 87801

== ENCOUNTER 2024-12-11 16:55 | Outpatient (CLI) | payer OTHER, SELFPAY ==
--- OUTSIDE RECORDS SUMMARY | 2024-12-11 16:59 | XMS_ITS | Clinical Summary ---
Author Organization [facility] Address [address] [place] [address] Care Team Providers Care Surface To Air Weapons Officer Name Role Phone Wilbur Romero MD Primary Care Provider + [phone] Immunizations Immunization Administration Dates Next Due Hep [...] of Treatment Not on file Care Teams Surface To Air Weapons Officer Relationship Specialty Start Date End Date Wilbur Romeor MD [address] [place] [address] PCP - General 06/28/20
--- OUTSIDE RECORDS SUMMARY | 2024-12-11 16:59 | XMS_ITS | Data Portability ---
Author Organization [facility] ADMIN Address [address] [place] [address] Care Team Providers Care Communications Maintainer Name Role Phone ENMANUEL GARCIA Primary Care Provider Assessment No assessment recorded. Plan of Treatment Reminders Order Date Submit Date Provider Last Modified By Organization Details Last Modified Time Details Appointments None recorded. Lab cytology, urine 2022 023 [email or web address] Not available 3 08:51:53 urinalysis , dipstick 2022 023 [email or web address] [facility], [address] [place] [address], [address], [place], [address], 3 14:35:00 Referral None recorded. Procedures None recorded. Surgeries None recorded. Imaging CT, abdomen + pelvis, w/wo contrast 2022 023 [email or web address] [facility] (Centralized Scheduling), [address] [place], [address], 3 08:51:06 Medication Orders None recorded. Patient TargetsNo targets recorded. Patient InstructionsNo instructions recorded. Reason for Referral None Reported. Results Created Date Observation Date Name Description Value Unit Range Abnormal Flag Note LastModifiedBy Organization Detail LastModifiedTime 11/04/19 23 11/03/2022 urina lysis , dipst ick Leukocytes (reference range) negati ve Not Available [facility] [address] [place] [address] [address], [place], [address], 11/03/2022 14:34:30 11/04/19 23 11/03/2022 urina lysis , dipst ick Nitrite (reference range:) negati ve Not Available [facility] [address] [place] [address] [address], [place], [address], 11/03/2022 14:34:30 11/04/19 23 11/03/2022 urina lysis , dipst ick Urobilinogen (reference range) 0.2 Not Available [facility] [address], [place], [address], 11/03/2022 14:34:30 11/04/19 23 11/03/2022 urina lysis , dipst ick Protein (reference range) negati ve Not Available [address], [place], [address], 11/03/2022 14:34:30 11/04/19 23 11/03/2022 urina lysis , dipst ick pH (reference range 5-8.5) 6.0 Not Available [address], [place], [address], 11/03/2022 14:34:30 11/04/19 23 11/03/2022 urina lysis , dipst ick Blood (reference range:) negati ve Not Available [address], [place], [address], 11/03/2022 14:34:30 11/04/19 23 11/03/2022 urina lysis , dipst ick Specific [place] (reference range) 1.020 Not Available [address], [place], [address], 11/03/2022 14:34:30 11/04/19 23 11/03/2022 urina lysis , dipst ick Ketone (reference range) negati ve Not Available [facility] [address] [place] [address] [address], [place], [address], 11/03/2022 14:34:30 11/04/19 23 11/03/2022 urina lysis , dipst ick Bilirubin (reference range) negati ve Not Available [facility] [address] [place] [address] [address], [place], [address], 11/03/2022 14:34:30 11/04/19 23 11/03/2022 urina lysis , dipst ick Glucose (reference range) negati ve Not Available [facility] [address] [place] [address] [address], [place], [address], 11/03/2022 14:34:30 11/04/19 23 11/03/2022 urina lysis , dipst ick Color (reference range: yellow-brown ) Yellow Not Available [facility] [address] [place] [address] [address], [place], [address], 11/03/2022 14:34:30 12/04/1912/10/2022 ABAHY KAYE UR (STON E NILTON SIS) source Commen t . Not provi ded Not Available [facility] ([facility]) [address] [facility], [place], [address], 12/10/2022 06:14:07 12/04/1912/10/2022 SAMIR BACA (STON E [place]IL[place] SIS) color Davila Not Available [facility] ([facility]) [address] [facility], [place], [address], 12/10/2022 06:14:07 12/04/1912/10/2022 ABHAY KAYE UR (ST[place] E [place] SIS) size 6x5 mm Singl e piece recei aditya. Not Available [facility] ([facility]) [address] [facility], [place], [address], 12/10/2022 06:14:07 12/04/19 23 12/10/2022 CALCU LI, UR (STON E NILTON SIS) weight 34 mg Not Available [facility] ([facility]) [address] [facility], [place], [address], 12/10/2022 06:14:07 12/04/1912/10/2022 CALCU LI, UR (STON E NILTON SIS) composition Catrachito Lucero ntage (Repr esent s the % compo sitio n) Not Available [facility] ([facility]) [address] [facility], [place], [address], 12/10/2022 06:14:07 12/04/1912/10/2022 CALCU LI, UR (STON E NILTON SIS) Ca oxalate dihydrate 100 % Not Available [facility] ([facility]) [address] [facility], [place], [address], 12/10/2022 06:14:07 12/04/1912/10/2022 CALCU LI, UR (STON E NILTON SIS) comment: Catrachito Nguyen Physi sherman quest ions regar ding Calcu li N[place] sis conta ct [facility] rp at: [phone]. Not Available [facility] ([facility]) [address] [facility], [place], [address], 12/10/2022 06:14:07 12/04/1912/10/2022 CALCU LI, UR (STON E NILTON SIS) please note: Catrachito Nguyen Calcu li repor t will follo w via compu ter, mail or couri oscar esteves. Not Available [facility] ([facility]) [address] [facility], [place], [address], 12/10/2022 06:14:07 12/04/1912/10/2022 CALCU LI, UR (STON E NILTON SIS) photo Catrachito Nguyen Photo graph will follo w under a separ ate cover Not Available [facility] ([facility]) [address] [facility], [place], [address], 12/10/2022 06:14:07 12/04/1912/10/2022 SAMIR BACA (STON E NILTON SIS) pdf image . Perfo rmed at: [facility] [address] [facility] , [place] [address] Lab Direc tor: Rebel Celaya PhD, Phone : [phone] Not Available [facility] ([facility]) [address] [facility], [place], [address], 12/10/2022 06:14:07 12/04/1912/10/2022 SAMIR BACA (STON E NILTON SIS) disclaimer: Commen t . This test was devel oped and its perfo rmanc e jose cteri stics deter mined by [facility] [facility]. It has not been clear ed or appro aditya by the Food and Drug Admin istra tion. Not Available [facility] ([facility]) [address] [facility], [place], [address], 12/10/2022 06:14:07 12/04/1912/03/2022 CT [facility] [address] [place] [address] Phone: Fax: Name: VISHAL ORELLANA Exam Date: 2022 : [birth year] Age 42 Gender : F Access ion: [id number] Physic peggy: NAYELY MERRILL Facili ty: [facility] Facili ty HSV: Outpat ient Exam: CT ABD PEL W (IV CONT ONLY) CT ABDOME N AND PELVIS WITH CONTRA ST TECHNI QUE: IV contra st enhanc ed CT examin ation of the abdome n/pelv is. Urogra m protoc ol was perfor med, which includ es a precon trast, 25 second arteri al phase, 60 Second venous phase, 5 minute delaye d phase, and an 8 minute delay. HISTOR Y: Hematu yana. COMPAR ELBA: None . FINDIN GS: ABDOME N: Solid abdomi nal organs appear unrema rkable . Kidney s enhanc e approp riatel y. No bowel obstru ction. Append ix is normal . Aorta is normal calibe r. No lympha denopa thy. PELVIS : Ureter s appear unrema rkable . The urinar y bladde r is minima lly disten ded over the entire examin ation, and there is no defini te abnorm ality identi fied within the opacif ied aspect s of the urinar y bladde r. Howeve r given incomp lete opacif icatio n/fill ing of the bladde r, it remain s incomp letely evalua ton on this study. Genita l organs appear unrema rkable . No lympha denopa thy. No acute osseou s change s.. IMPRES MARKO: Incomp lete evalua tion of the urinar y bladde r, as it was minima lly disten ded throug hout the examin ation, and not entire ly filled with contra st on any phase. Kidney s and ureter s demons trate no CT abnorm ality. Consid er furthe r charac teriza tion with cystos copy/u retero scopy. This study was perfor med using automa ton techni ques to achiev e radiat ion exposu re as low as reason ably achiev able Dictat ed By: Guanako Dacosta Transc ribed By: Guanako Dacosta Transc ribed On: 2022 12:16 PM Electr onical ly signed by: Guanako Dacosta 2022 Thank you for referr ing [facility]. Legall y authen ticate d by KACY Cervantes W 2022-02 12:16: 11 CC'ed Logic: Orderi ng Provid er: GARFIELD Stark Attend ing Provid er: GARFIELD Stark Referr ing Provid er: GARFIELD ADLER Mi Admitt ing Provid er: GARFIELD Stark [email or web address] [facility] - [facility] [address], [place], [address], 12/03/2022 12:51:36 Result Notes None recorded. Medical Equipment None Reported. Allergies No known drug allergies Medications Name Sig Start Date Stop Date Status Note LastModified by Organization Details LastModified Time promethazin e-DM 6.25 mg-15 mg/5 mL oral syrup TAKE 5ML BY MOUTH EVERY 6 HOURS NEEDED active Not Available Not Available No t Available valacyclovi r 1 gram tablet active Not Available Not Available Not Available ciprofloxac in 250 mg tablet 11/03 completed Not Available Not Available Not Available quetiapine 100 mg tablet active Not Available Not Available Not Available Calcium-600 600 mg (as calcium carbonate 1,500 mg) tablet Take by oral route. active Not Available Not Available No t Available levofloxaci n 500 mg tablet 11/03 completed Not Available Not Available Not Available iron,carb-C -E-B6-B12-I F-FA-DSS 165 mg-1000 mcg-2 mg tablet Take by oral route. active Not Available Not Available No t Available metaxalone 800 mg tablet 11/03 completed Not Available Not Available Not Available zinc 50 mg capsule Take by oral route. active Not Available Not Available No t Available nitrofurant oin monohydrate /macrocryst als 100 mg capsule 11/03 completed Not Available Not Available Not Available quetiapine 50 mg tablet 11/03 completed Not Available Not Available Not Available B6 100 mg-FA 800 mcg-B12 200 mcg-co Q10 100 mg-herbal no.225 tablet Take by oral route. active Not Available Not Available No t Available Paxlovid 300 mg (150 mg x 2)-100 mg tablets in a dose pack TK 2 NIRMATREL VIR TS AND 1 RITONAVIR T TOGETHER PO BID FOR 5 DAYS active Not Available Not Available No t Available Probitoic Digestive Support (6 strain) 10 billion cell-100 mg capsule Take by oral route. active Not Available Not Available No t Available Vitals Date Recorded Body height Body mass index (BMI) Body weight Systolic And Diastolic Provider Name and Address Organization Details Last Updated DateTime 11/03/2022 172.72 cm 26.7 kg/m2 29738.82 g 118/70 mm[Hg] Chiqui Merrill NP, S [address] [facility], [place], [address], [facility] & [place] 11/03/2022 14:31:36 Date Recorded Body height Body mass index (BMI) Body weight Body temperature Systolic And Diastolic Provider Name and Address Organization Details Last Updated DateTime 12/22/2022 172.72 cm 26.7 kg/m2 61152.8 2 g 98.8 [degF] 126/72 mm[Hg] Kassi Taylor [facility] [place] 15:07:07 Social History None recorded. Functional Status Question Answer Note LastModified by Organizat ion Details LastModified Time Do you use any illicit or recreational drugs? No former quit 2015 Information not available 11/03/2022 What is your level of alcohol consumption? None Information not available 11/03/2022 Mental Status None recorded. Family History Nothing Reported Notes:mother- skin cancer Fa ther- HBP, CANCER Medical History Condition Response Kidney Stones Y Gynecological HistoryNo gynecological history recorded. Obstetrics History GPAL:G 0 P 0 0 0 0 Past Encounters Encounter ID Performer Location Encounter Start Date Encounter Closed Date Diagnosis/Indication Diagnosis SNOMED-CT Code Diagnosis ICD10 Code Diagnosis IMO Codes Diagnosis Note [id number] Chiqui Merrill NP, S [facility] [address] [place] [address],[address] [place] [address] 11/03/2022 13:44:09 11/03/2022 14:50:45 Ron hematuria 059301400 R31.0 UA clearUrine for cytologySc hedule Ct scan of abd/pelvis with and w/o IV contrastRT C in 6 weeks to discuss test results and possible office BC to complete hematuria w/u. Urgent javier juliane to urinate 25494721 R39.15 Increased frequency of urination 924703454 R35.0 Nocturia 323343305 R35.1 History of calculus of kidney 444394281 Z87.442 [id number] Chiqui Merrill NP, S [facility] [address] [place] [address],[address] [place] [address] 12/22/2022 14:55:15 12/22/2022 15:19:54 Ron hematuria 580228460 R31.0 Urgent javier juliane to urinate 03356324 R39.15 Increased frequency of urination 653912897 R35.0 Nocturia 267281026 R35.1 History of calculus of kidney 581281151 Z87.442 CT scan, kidney stone analysis, and urine cytology results discussed with patient clinic today. Patient reports since passing stone her LUTS symptoms have improved. I have discussed litho link for further evaluation of kidney stone however she reports she declines at this time related to financial reasons. Patient return to clinic in 4 months for follow-up. [id number] TONIA PERKINS ic Intervent ions at [facility] [address] [place] [address] 03/11/2023 14:00:23 03/17/2023 18:32:46 Health Concerns Section Related Observation LastModified by Organization Detai ls LastModified Time None Recorded Concern Status LastModified by Organization Details LastModified Time None Recorded Advance Directives Directive None Recorded Payers Insurance Date Sequence Insurance Name Policy Number Policy Garza Covered Member ID Garza Member ID Guarantor Name 09/04/2023 1 [facility] [id number] Glory Keith [id number] Glory Keith Notes Date Note Type Note Provider Name and Address Organization Details Recorded Time 11/03/2022 text/html 42 yowf presents to clinic for evaluation of gross hematuria. Patient reports in August she was experiencing intermittent gross hematuria. Patient reports at this time she was having no other symptoms. Reports in September started experiencing right flank pain that radiated to the right lower quadrant of abdomen and urinary urgency /frequency. Patient reports she passed 3 stones 1 on October 08, another on October 11, and the last when she passed was on October 14. She reports the pain dissipated however she continued with urinary urgency / frequency intermittently. Reports she is went to her PCP and urinalysis was negative for infection however she was given antibiotics. Urine cultures was negative. Reports urinary stream is good. Nocturia times 1-2. Bowels move regularly. She denies any dysuria. Reports she is a history of kidney stones in the past. First stone was in 2014 and then had another 1 a few years later, passed all stones. Reports she is not had any imaging of her kidneys. Reports she is a current smoker, smokes 5-7 cigarettes a day. Denies any family history of any malignancy. Denies any history of hysterectomy. States urinary symptoms are not aggravated by food or drinks or sexual intercourse. Chiqui Merrill NP, S [address] [facility], [place], [address], [place] [facility] [place] & [place] 11/03/2022 14:35:34 12/22/2022 text/html 42 yowf RTC for f/u of hematuria. After visit on 11/03/2022 patient passed a stone. Patient had a stone analysis on 12/03/2022 that was calcium oxalate dihydrate 100%. Urine cytology was negative for malignant cells on 11/03/2022. Patient had a CT scan of abdomen pelvis without and with IV contrast on 12/03/2022 that was unremarkable. Patient reports since she has passed the stone she is not had any LUTS symptoms. She denies any dysuria or gross hematuria. Reports urinary stream is good. Previous History: [42 yowf presents to clinic for evaluation of gross hematuria. Patient reports in August she was experiencing intermittent gross hematuria. Patient reports at this time she was having no other symptoms. Reports in September started experiencing right flank pain that radiated to the right lower quadrant of abdomen and urinary urgency /frequency. Patient reports she passed 3 stones 1 on October 08, another on October 11, and the last when she passed was on October 14. She reports the pain dissipated however she continued with urinary urgency / frequency intermittently. Reports she is went to her PCP and urinalysis was negative for infection however she was given antibiotics. Urine cultures was negative. Reports urinary stream is good. Nocturia times 1-2. Bowels move regularly. She denies any dysuria. Reports she is a history of kidney stones in the past. First stone was in 2014 and then had another 1 a few years later, passed all stones. Reports she is not had any imaging of her kidneys. Reports she is a current smoker, smokes 5-7 cigarettes a day. Denies any family history of any malignancy. Denies any history of hysterectomy. States urinary symptoms are not aggravated by food or drinks or sexual intercourse.] Chiqui Merrill, [employer], S [address] [facility], [place], [address], [facility] [place] [facility] [place] [facility] [place] 12/22/2022 15:25:43 OBGyn Episode No OBEpisode recorded.
--- NOTE | 2024-12-11 17:00 | MM_ITS ---
PROCEDURE INFORMATION: Exam: MG Bilateral Screening 3D Mammography Exam date and time: 12/11/2024 4:57 PM Age: 44 years old Clinical indication: Screening exam TECHNIQUE: Imaging protocol: Bilateral Screening tomosynthesis and 2D mammography including computer-aided detection (CAD) when performed. COMPARISON: 1. MG MM DIG SCREENING MAMM BI W/CAD 06/15/2023 9:41 AM 2. MG MM DIG SCREENING MAMM BI W/CAD 04/03/2022 4:12 PM FINDINGS: MAMMOGRAPHY: Breast composition: There are scattered areas of fibroglandular density. Mass: No suspicious masses. Architectural distortion: None. Calcifications: No suspicious calcifications. Asymmetric density: None. Skin thickening: None. Axillary adenopathy: None. IMPRESSION: No mammographic evidence of malignancy. Annual screening is recommended unless otherwise clinically indicated. ASSESSMENT: BI-RADS Category 1: Negative.
== END 2024-12-11 23:59 | disposition home or self-care (01) ==
LOC: RAD 16:55
PROVIDERS: PCP Family Medicine; Visit Provider Obstetrics & Gynecology
DX: Z12.31 Encounter for screening mammogram for malignant neoplasm of breast (principal); Z00.00 Encounter for general adult medical examination without abnormal findings; R92.323 Mammographic fibroglandular density, bilateral breasts
CPT/HCPCS: 77063; 77067